=== PATIENT | female | born 1955 | race Caucasian/White ===

== ENCOUNTER → 2021-03-29 08:16 | Outpatient (CLI) | payer MEDICARE, BC, SELFPAY ==
--- NOTE | 2021-03-29 08:20 | MR_ITS ---
PROCEDURE: MR LUMBAR SPINE WO CON CLINICAL INDICATION: SPINAL STENOSIS, LUMBAR RADICULOPATHY Lt sided LBP [id number]. Lt leg pain, numbness, and tingling. Pain is constant. No injury or trauma. No prior. COMPARISON: No exams were available for comparison TECHNIQUE: Standard multiplanar multiecho sequences are performed without contrast. 3-D MIP and myelographic images are also rendered and reviewed FINDINGS: There is normal alignment. There is slight reversal of the lumbar lordosis with mild lumbar scoliosis convex right. Spinal cord ends at the L1 level. L1-L2: Degenerative disc disease with mild bulging disc and facet and ligamentum hypertrophy with mild bilateral lateral recess narrowing and foraminal narrowing left greater than right. L2-L3: Degenerative disc disease with minimal bulging disc. There is moderate left-sided facet and ligamentum hypertrophy with left lateral recess narrowing and moderate to severe left-sided foraminal narrowing. Type 2 endplate changes at this level. L3-L4: Degenerative disc disease with mild bulging disc more prominent at the foraminal and lateral foraminal regions with moderate left-sided foraminal narrowing. L4-5: Degenerative disc disease with bulging disc eccentric toward the right with endplate hypertrophic change on the right along with facet and ligamentum hypertrophy with moderate right and mild left foraminal narrowing. L5-S1: Mild degenerative disc disease. Mild facet hypertrophic change. Mild bilateral foraminal narrowing. No extruded herniated disc evident. There are degenerative changes of the SI joints On the STIR images there is increased signal intensity within the sacrum on both sides at the lateral aspect. This is nonspecific and could be related to underlying bone marrow edema from SI arthritic changes. However, on the axial T1 weighted images there is a linear area of decreased T1 signal in the left sacral wing which could be related to a nondisplaced insufficiency fracture. IMPRESSION: Multilevel lumbar spondylosis with degenerative disc disease bulging disc and facet and ligamentum hypertrophy with varying degrees of lateral recess and foraminal narrowing along with lumbar scoliosis and slight reversal of the lumbar lordosis. Please see above for detailed description at each level. No extruded herniated disc or bony canal stenosis. 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 CT of the sacrum may be of further value if clinically warranted Dictated by: Americo Sibley MD 03/30/2021 10:03 Americo Sibley MD in [place] 03/30/2021 10:03
== END ==
PROVIDERS: PCP Family Medicine; Visit Provider Family Medicine
DX: M54.16 Radiculopathy, lumbar region (principal); M47.816 Spondylosis without myelopathy or radiculopathy, lumbar region; M48.062 Spinal stenosis, lumbar region with neurogenic claudication
CPT/HCPCS: 72148; 76376

== ENCOUNTER 2022-01-27 17:11 | Emergency (ER) | payer MEDICARE, BC, SELFPAY ==
[2022-01-27 17:18] VITALS: BP 110/76; PULSE 87; RESP 16; TEMP 36.9; O2SAT 96; BMI 25.1
[2022-01-27 17:20] VITALS: BP 129/89; PULSE 84; RESP 18; TEMP 36.7; O2SAT 95; BMI 25.1
--- NOTE | 2022-01-27 17:26 | XR_ITS ---
PROCEDURE INFORMATION: Exam: XR Right Wrist Exam date and time: 01/27/22 05:27 PM Age: 66 years old Clinical indication: Injury or trauma; Fall; Blunt trauma (contusions or hematomas); Wrist; Right; Injury date: 01/27/22 TECHNIQUE: Imaging protocol: XR Right wrist. Views: 3 or more views. COMPARISON: No relevant prior studies available. FINDINGS: Bones/joints: Colles fracture distal right radial metaphysis. Comminuted fracture of the distal right ulna and styloid. Soft tissues: Normal. IMPRESSION: 1. Colles fracture distal right radial metaphysis. 2. Comminuted fracture of the distal right ulna and styloid.
--- NOTE | 2022-01-27 17:26 | XR_ITS ---
PROCEDURE INFORMATION: Exam: XR Right Hand Exam date and time: 01/27/22 05:30 PM Age: 66 years old Clinical indication: Injury or trauma; Fall; Blunt trauma (contusions or hematomas); Hand; Right; Injury date: 01/27/22 TECHNIQUE: Imaging protocol: XR Right hand. Views: 3 or more views. COMPARISON: CR XR WRIST RT MIN 3V 01/27/22 05:27 PM FINDINGS: Bones/joints: Colles fracture distal right radius. Comminuted fracture distal right ulna and ulnar styloid. Soft tissues: Normal. IMPRESSION: 1. Colles fracture distal right radius. 2. Comminuted fracture distal right ulna and ulnar styloid.
--- NOTE | 2022-01-27 17:35 | HMH.EDUTC ---
[facility] [place] Disposition Clinical Impression: Wrist fracture Qualifiers: Encounter type: initial encounter Fracture type: closed Laterality: right Qualified Code(s): S62.101A - Fracture of unspecified carpal bone, right wrist, initial encounter for closed fracture Disposition: Home, Self-Care Condition on Discharge: Good Instructions: Wrist Fracture, DI for Wrist Fracture, How To Perform RICE (Rest, Ice, Compress, Elevate), Ibuprofen Additional Instructions: *RICE, Rest the extremity, Ice 15-20 minutes 3-4 times daily, Compress- wear the shayy wrap as discussed as much as possible to help reduce swelling and pain, Elevate the extremity when at rest *Orthoglass splint is for support and help control swelling, do not take it off. Be sure that is not to tight but not to loose either *Elevate when resting Take previously prescribed pain medication as prescribed Immediately follow up with your family doctor for new or worsening of symptoms, or no noticeable improvement over the next 3-5 days Call Orthopedic office in the morning and make appointment either during the week with Dr Wright or on Thursday with Dr Dahl Return if needed Straight to ER if any life threatening symptoms Referrals: Jarocho Huynh MD [Primary Care Provider] - Jono Dahl JR, MD [Physician] - Forms: Work/School Release Time of Disposition: 18:26 Medical Decision Making - Geovani Inquiry Pt receiving controlled substance: No Geovani was queried for this patient: No Vital Signs: 01/27/22 17:18 01/27/22 17:20 Temperature 98.4 F 98.1 F Temperature Source Oral Oral Pulse Rate [Left Radial] 87 84 Respiratory Rate 16 18 Blood Pressure [Left Arm] 110/76 129/89 Blood Pressure Mean [Left Arm] 87 102 Blood Pressure Source [Left Arm] Automatic Cuff Automatic Cuff Blood Pressure Position [Left Arm] Sitting Sitting 02 Sat by Pulse Oximetry 96 95 Oxygen Delivery Method Room Air Room Air - Radiology Data #1 Image(s): Wrist Image Reviewed: Yes I have reviewed radiologist's interpretation IMPRESSION: 1. Colles fracture distal right radial metaphysis. 2. Comminuted fracture of the distal right ulna and styloid. #2 Image(s): Hand Image Reviewed: Yes I have reviewed radiologist's interpretation IMPRESSION: 1. Colles fracture distal right radius. 2. Comminuted fracture distal right ulna and ulnar styloid. - Physician Consults Physician Consulted: Dr Dahl Time: 18:21 Reason -: Orthopedic Eval/Care Comment/Response: Spoke with Dr Dahl and he advised to place in sugar tong splint and she could follow up in the office this week with Dr Wright or with him on Thursday [facility] HPI - General Stated complaint: AO 01/27@[id number] injured R hand Time Seen by Provider: 01/27/22 17:25 Mode of Arrival: Ambulatory Source of Information: Patient Limitations: No Limitations Description of Symptoms (Recalled from Triage Doc. by RN): PATIENT C/O RIGHT WRIST INJURY. SHE STATES SHE WAS WALKING THROUGH A GATE AND TRIPPED TODAY, HEAR A POP TO RIGHT WRIST HEENT Symptoms (Recalled from RN notes): No Resp Symptoms (Recalled from RN notes): No Skin Symptoms (Recalled from RN notes): No MS Symptoms (Recalled from RN notes): Yes Functional Status (Recalled from RN notes): WNL - History of Present Illness Provider Complaint: Patient states that she was walking through a gate and she bent over and picked up a stick when she tripped and fell and landed on her right wrist and she felt a pop State that ever since she has been having pain in her wrist so she came in to get checked - Worker's Comp Is this a Worker's Comp case?: No [facility] History - Hepatitis A Screen Attestation statement:: This patient has been screened for Hepatitis A risk factors. I have reviewed the patient's past medical history: Yes ROS Obtained: Yes All systems reviewed & no additional complaints, Yes Systems reviewed as appropriate & no additional complaints - P[place]io
[2022-01-27 18:35] VITALS: BP 129/89; PULSE 84; RESP 18; TEMP 36.7; O2SAT 95
== END 2022-01-27 18:41 | disposition home or self-care (01) ==
PROVIDERS: Emergency Provider Nurse Practitioner; PCP Family Medicine
DX: S52.531A Colles' fracture of right radius, initial encounter for closed fracture (principal); S52.611A Displaced fracture of right ulna styloid process, initial encounter for closed fracture; W01.0XXA Fall on same level from slipping, tripping and stumbling without subsequent striking against object, initial encounter
CPT/HCPCS: 29125; 73110; 73130; 99212; G0463

== ENCOUNTER 2022-02-07 11:43 | Outpatient (RCR) | payer MEDICARE, BC, SELFPAY | END 2022-02-07 12:45 | disposition home or self-care (01) | LOC: OT 11:43 | PROVIDERS: Visit Provider Orthopaedic Surgery | DX: S62.101D Fracture of unspecified carpal bone, right wrist, subsequent encounter for fracture with routine healing (principal) | CPT/HCPCS: 97763 ==

== ENCOUNTER → 2022-02-14 13:57 | Outpatient (CLI) | payer MEDICARE, BC, SELFPAY ==
--- NOTE | 2022-02-14 14:02 | XR_ITS ---
FINAL REPORT CLINICAL HISTORY: wrist fracture, pt states that she fractured her wrist on January 27 from a fall and took off her cast before recommended. COMPARISON: January 27, 2022 FINDINGS: RIGHT WRIST Three views demonstrate a comminuted impacted fracture of the distal radius. There is worsening impaction and dorsal displacement since the prior study. There is a distal ulnar fracture involving the ulnar styloid process, also with increased dorsal displacement. There is soft tissue swelling noted. IMPRESSION: Worsening impaction and dorsal displacement of distal radius and ulnar fractures. Reviewed, Interpreted and Dictated by Vito Gonzáles III, MD Transcribed by Dionna Moe Authenticated and [facility]
== END ==
PROVIDERS: PCP Family Medicine; Visit Provider Orthopaedic Surgery
DX: S62.101A Fracture of unspecified carpal bone, right wrist, initial encounter for closed fracture (principal)
CPT/HCPCS: 73110

== ENCOUNTER → 2022-03-21 13:20 | Outpatient (CLI) | payer MEDICARE, BC, SELFPAY ==
--- NOTE | 2022-03-21 13:23 | XR_ITS ---
FINAL REPORT CLINICAL HISTORY: wrist fracture FINDINGS: AP, oblique, and lateral views of the right wrist were obtained. Comparison is made to an exam dated February 14, 2022. There is interval healing of the distal radius and ulna fractures. The fracture fragment alignment is unchanged. There is degenerative joint disease. There is mild soft tissue edema. IMPRESSION: Healing distal radius and ulnar fractures. No change in alignment. Reviewed, Interpreted and Dictated by Yeimi Christine MD Transcribed by Dennis Soriano Authenticated and [facility]
== END ==
PROVIDERS: PCP Family Medicine; Visit Provider Orthopaedic Surgery
DX: S62.101A Fracture of unspecified carpal bone, right wrist, initial encounter for closed fracture (principal)
CPT/HCPCS: 73110

== ENCOUNTER → 2022-05-02 12:14 | Outpatient (CLI) | payer MEDICARE, BC, SELFPAY ==
--- NOTE | 2022-05-02 12:20 | XR_ITS ---
FINAL REPORT CLINICAL HISTORY: rt wrist fracture f/u COMPARISON: 03/21/2022 FINDINGS: RIGHT WRIST Three views demonstrate comminuted, impacted fractures of the distal radius and ulna. There has been interval healing and increased callus formation. Alignment is unchanged. Mild degenerative changes are noted. IMPRESSION: Interval healing and callus formation, otherwise, no significant change. Reviewed, Interpreted and Dictated by Vito Gonzáles III, MD Transcribed by Brigette Ford Authenticated and [facility]
== END ==
PROVIDERS: PCP Family Medicine; Visit Provider Orthopaedic Surgery
DX: S62.101A Fracture of unspecified carpal bone, right wrist, initial encounter for closed fracture (principal)
CPT/HCPCS: 73110

== ENCOUNTER → 2022-08-29 12:30 | Outpatient (CLI) | payer MEDICARE, BC, SELFPAY ==
--- NOTE | 2022-08-29 12:33 | XR_ITS ---
FINAL REPORT CLINICAL HISTORY: wrist fracture COMPARISON: 05/02/2022 FINDINGS: Right wrist Three views were obtained. The distal radial fracture appears radiographically healed although there is significant deformity of dorsal angulation and displacement. There is increased lucency of the distal ulnar fracture compatible with nonunion. The carpus is intact. IMPRESSION: Interval healing of a distal radial fracture with underlying deformity. Nonunion of an ulnar fracture. Reviewed, Interpreted and Dictated by Bell Smith MD Transcribed by Radha No Authenticated and . [facility]
== END ==
PROVIDERS: PCP Family Medicine; Visit Provider Orthopaedic Surgery
DX: M25.531 Pain in right wrist (principal); S62.101A Fracture of unspecified carpal bone, right wrist, initial encounter for closed fracture
CPT/HCPCS: 73110

== ENCOUNTER 2023-01-23 15:57 | Emergency (ER) | payer MEDICARE, BC, SELFPAY ==
[2023-01-23 16:10] VITALS: BP 143/98; PULSE 129; RESP 22; TEMP 36.8; O2SAT 98; BMI 23.8
[2023-01-23 16:25] LABS: Apearance,Urine Turbid (Clear); Bilirubin,Urine Negative (Negative); Blood, Urine 3+ (Negative); Color,Urine Amber (Yellow); Glucose,Urine (UA) Negative (Negative); Ketones,Urine Negative (Negative); PH,Urine 7.5 (5.0-8.5); Protein,Urine 3+ (Negative); Specific Gravity, Urine 1.025 (1.005-1.030); UTC Leukocyte Esterase,Urine 3+ (Negative); Urobilinogen,Urine 2 EU/dl (0.2)
[2023-01-23 16:26] LABS: UTC Nitrate,Urine Positive (Negative)
[2023-01-23 16:27] VITALS: BP 143/98; PULSE 129; RESP 22; TEMP 36.8; O2SAT 98
[2023-01-23 16:32] VITALS: BP 116/80
--- NOTE | 2023-01-23 16:36 | EXP.UTC ---
Discharge Plan Disposition Patient Disposition: Home, Self-Care Condition: Good Prescriptions Prescriptions: New ciprofloxacin HCl [Cipro] 500 mg tablet 500 mg PO Q12H 7 Days Qty: 14 0RF No Action diazepam 10 mg tablet 10 mg PO HS Label Comments: TAKE ONE TABLET BY MOUTH EVERY EVENING MAY CAUSE DROWSINESS oxycodone 30 mg tablet 30 mg PO TID Label Comments: TAKE ONE TABLET BY MOUTH THREE TIMES DAILY and TAKE 1/2 TABLET BY MOUTH EVERY EVENING MAY CAUSE DROWSINESS diclofenac sodium 75 mg tablet,delayed release (DR/EC) 75 mg PO BID Label Comments: TAKE ONE TABLET BY MOUTH TWICE DAILY --TAKE WITH FOOD-- Referrals Follow up/Referrals: Jarocho Huynh MD [Primary Care Provider] - See instructions Clinical Impressions Clinical Impression: Urinary tract infection Qualifiers: Urinary tract infection type: acute cystitis Hematuria presence: with hematuria Qualified Code(s): N30.01 - Acute cystitis with hematuria Instructions Patient Instructions: DI for Urinary Tract Infection (UTI) Discharge ED Provider: Justa Pratt [facility] General Stated complaint: Possible UTI Mode of Arrival: Ambulatory Source of Information: Patient Limitations: No Limitations Time Seen by Provider: 01/23/23 16:20 Description of Symptoms (Recalled from Triage Doc. by RN): PATIENT REPORTS BLADDER PRESSURE X 3-4 DAYS HEENT Symptoms (Recalled from RN notes): No Resp Symptoms (Recalled from RN notes): No Skin Symptoms (Recalled from RN notes): No MS Symptoms (Recalled from RN notes): No Functional Status (Recalled from RN notes): WNL History of Present Illness Provider Complaint: Pt reports that for the last 3 days she has had increased urinary frequency and pressure over her bladder. Pt has not taken anything for her symptoms. Related Data Home Medications Medication Instructions Recorded Confirmed diazepam 10 mg tablet 10 mg PO HS Insomnia 01/31/22 01/23/23 diclofenac sodium 75 mg 75 mg PO BID Pain 01/31/22 01/23/23 tablet,delayed release oxycodone 30 mg tablet 30 mg PO TID Pain 01/31/22 01/23/23 Previous Rx's Medication Instructions Recorded ciprofloxacin HCl 500 mg tablet 500 mg PO Q12H 7 days #14 tabs 01/23/23 (Cipro) Allergies Allergy/AdvReac Type Severity Reaction Status Date / Time naproxen [From EC-Naproxen] Allergy Verified 08/29/22 13:03 Worker's Comp Is this a Worker's Comp case?: No [facility] Disclaimer: The information contained in this section may have been updated after the patient was seen, as this information can be updated by other users. Social History Smoking Status: Current every day smoker alcohol intake: never current occupational status: employed Travel in the last 8 weeks: None ROS Obtained: Yes All systems reviewed & no additional complaints except as documented Constitutional Constitutional: Reports system reviewed and no additional complaints, except as documented Eyes Eyes: Reports system reviewed and no additional complaints, except as documented ENT Ears, Nose, Mouth, and Throat: Reports system reviewed and no additional complaints, except as documented Cardiovascular Cardiovascular: Reports system reviewed and no additional complaints, except as documented Respiratory Respiratory: Reports system reviewed and no additional complaints, except as documented Gastrointestinal Gastrointestingal: Reports system reviewed and no additional complaints, except as documented Genitourinary Female Genitourinary: Reports urinary frequency, Reports urinary hesitancy and Reports urinary urgency Comments: suprapubic pressure Musculoskeletal Musculoskeletal: Reports system reviewed and no additional complaints, except as documented Integumentary/Breasts Skin/Breast: Reports system reviewed and no additional complaints, except as documented Neurologic Neurologic: Reports system rev
== END 2023-01-23 16:47 | disposition home or self-care (01) ==
PROVIDERS: Emergency Provider Nurse Practitioner Family; PCP Family Medicine
DX: N30.01 Acute cystitis with hematuria (principal); F17.210 Nicotine dependence, cigarettes, uncomplicated
CPT/HCPCS: 81003; 99212; 99214; G0463

== ENCOUNTER 2023-03-28 14:05 | Emergency (ER) | payer MEDICARE, BC, SELFPAY ==
[2023-03-28 14:20] VITALS: BP 136/87; PULSE 68; RESP 18; TEMP 36.9; O2SAT 98; BMI 23.1
[2023-03-28 14:30] LABS: Microscopic, Urine URINE MICROSCOPIC (MICROSCOPIC)
--- NOTE | 2023-03-28 14:43 | EXP.UTC ---
Discharge Plan Disposition Patient Disposition: Home, Self-Care Condition: Good Prescriptions Prescriptions: New cephalexin [cephalexin] 500 mg tablet 500 mg PO BID 7 Days Qty: 14 0RF cephalexin [cephalexin] 500 mg tablet 500 mg PO BID 7 Days Qty: 14 0RF No Action diazepam 10 mg tablet 10 mg PO HS Patient Comments: TAKE ONE TABLET BY MOUTH EVERY EVENING MAY CAUSE DROWSINESS oxycodone 30 mg tablet 30 mg PO TID Patient Comments: TAKE ONE TABLET BY MOUTH THREE TIMES DAILY and TAKE 1/2 TABLET BY MOUTH EVERY EVENING MAY CAUSE DROWSINESS diclofenac sodium 75 mg tablet,delayed release (DR/EC) 75 mg PO BID Patient Comments: TAKE ONE TABLET BY MOUTH TWICE DAILY --TAKE WITH FOOD-- ciprofloxacin HCl [Cipro] 500 mg tablet 500 mg PO Q12H 7 Days Qty: 14 0RF Referrals Follow up/Referrals: Bell Gallego MD [Primary Care Provider] - See instructions Activity Restrictions/Add. Instructions Additional Instructions/Restrictions: Increase fluids, water and not soda or tea. Can drink cranberry juice or cranberry extract. Wipe front to back Wear cotton underwear Empty bladder after intercourse Start antibiotics immediately and make sure you take the full course although you may start to see improvement over the next 48 hours. You can eat yogurt or take probiotics to decrease diarrhea or yeast infection caused by the antibiotic Be sure to follow-up anytime for new or worsening symptoms in 48 hours for wound urine culture results be sure to let you PCP no recent urine for culture so they can request records and ensure that you have appropriate antibiotic if you are not getting better or getting worse. If symptoms worsen or do not improve return or be seen in the ER. Follow-up with primary care this week. Clinical Impressions Clinical Impression: Urinary tract infection Qualifiers: Urinary tract infection type: acute cystitis Hematuria presence: with hematuria Qualified Code(s): N30.01 - Acute cystitis with hematuria Instructions Patient Instructions: DI for Urinary Tract Infection (UTI) Discharge [facility] [place] General Stated complaint: possible uti Mode of Arrival: Ambulatory Source of Information: Patient Limitations: No Limitations Time Seen by Provider: 03/28/23 14:43 Description of Symptoms (Recalled from Triage Doc. by RN): PATIENT C/O URINARY FREQUENCY HEENT Symptoms (Recalled from RN notes): No Resp Symptoms (Recalled from RN notes): No Skin Symptoms (Recalled from RN notes): No MS Symptoms (Recalled from RN notes): No Functional Status (Recalled from RN notes): WNL History of Present Illness Provider Complaint: 67 yr old female presents for urinary freq and urgency Related Data Home Medications Medication Instructions Recorded Confirmed diazepam 10 mg tablet 10 mg PO HS Insomnia 01/31/22 01/23/23 diclofenac sodium 75 mg 75 mg PO BID Pain 01/31/22 01/23/23 tablet,delayed release oxycodone 30 mg tablet 30 mg PO TID Pain 01/31/22 01/23/23 Previous Rx's Medication Instructions Recorded ciprofloxacin HCl 500 mg tablet 500 mg PO Q12H 7 days #14 tabs 01/23/23 (Cipro) cephalexin 500 mg tablet 500 mg PO BID 7 days #14 tabs 03/28/23 cephalexin 500 mg tablet 500 mg PO BID 7 days #14 tabs 03/28/23 Allergies Allergy/AdvReac Type Severity Reaction Status Date / Time naproxen [From EC-Naproxen] Allergy Verified 08/29/22 13:03 Worker's Comp Is this a Worker's Comp case?: No [facility] Disclaimer: The information contained in this section may have been updated after the patient was seen, as this information can be updated by other users. Social History , [employer]) Smoking Status: Current every day smoker alcohol intake: never current occupational status: employed Travel in the last 8 weeks: None ROS Obtained: Yes All systems reviewed & no additional complaint
[2023-03-28 15:00] LABS: Appearance,Urine CLEAR (Clear); Bilirubin,Urine Negative (Negative); Blood, Urine 2+ (Negative); Color,Urine YELLOW (Yellow); Glucose,Urine (UA) Negative (Negative); Ketones,Urine Negative (Negative); Leukocyte Esterase,Urine 2+ (Negative); Nitrate,Urine Negative (Negative); PH,Urine 7.5 (5.0-8.5); Protein,Urine 2+ (Negative)
[2023-03-28 15:09] VITALS: BP 136/87; PULSE 68; RESP 18; TEMP 36.9; O2SAT 98
[2023-03-28 15:29] LABS: Bacteria,Urine Trace /lpf; WBC,Urine 20-50 #/hpf (0-3)
== END 2023-03-28 15:12 | disposition home or self-care (01) ==
PROVIDERS: Emergency Provider Nurse Practitioner Family; PCP Family Medicine
DX: N30.01 Acute cystitis with hematuria (principal); F17.210 Nicotine dependence, cigarettes, uncomplicated; B96.29 Other Escherichia coli [E. coli] as the cause of diseases classified elsewhere
CPT/HCPCS: 81001; 87086; 87088; 87186; 99212; 99214; G0463

== ENCOUNTER 2023-07-12 14:16 | Emergency (ER) | payer MEDICARE, BC, SELFPAY ==
[2023-07-12 14:40] VITALS: BP 148/96; PULSE 74; RESP 18; TEMP 37.1; O2SAT 96; BMI 25.0
--- NOTE | 2023-07-12 14:48 | EXP.UTC ---
Discharge Plan Disposition Patient Disposition: Home, Self-Care Condition: Good Prescriptions Prescriptions: New phenazopyridine [Pyridium] 200 mg tablet 200 mg PO Q8H 2 Days Qty: 6 0RF sulfamethoxazole-trimethoprim [Bactrim DS] 800-160 mg Tablet 1 tab PO BID Qty: 14 0RF No Action diazepam 10 mg tablet 10 mg PO HS Patient Comments: TAKE ONE TABLET BY MOUTH EVERY EVENING MAY CAUSE DROWSINESS oxycodone 30 mg tablet 30 mg PO TID Patient Comments: TAKE ONE TABLET BY MOUTH THREE TIMES DAILY and TAKE 1/2 TABLET BY MOUTH EVERY EVENING MAY CAUSE DROWSINESS diclofenac sodium 75 mg tablet,delayed release (DR/EC) 75 mg PO BID Patient Comments: TAKE ONE TABLET BY MOUTH TWICE DAILY --TAKE WITH FOOD-- Referrals Follow up/Referrals: Jarocho Huynh MD [Primary Care Provider] - See instructions Activity Restrictions/Add. Instructions Additional Instructions/Restrictions: Drink plenty of fluids. Take tylenol or ibuprofen for pain or fever. Take the medications as directed. Follow up with your regular doctor. GO TO THE ER FOR ANY WORSENING SYMPTOMS The pyridium will make your urine turn orange, this is an expected side effect. It will stain your clothes if it comes into contact with them. We will culture the urine. That will tell what bacteria is causing your infection and which antibiotics will treat it best. Sometimes the first antibiotic we prescribe turns out to not work against different bacteria. So, make sure you follow up within 3 days if you are not getting better. Clinical Impressions Clinical Impression: Urinary tract infection Instructions Patient Instructions: Urinary Tract Infection, Urine Culture, DI for Urinary Tract Infection (UTI), Phenazopyridine Discharge ED Provider: Lorenzo Thrasher [facility] General Stated complaint: POSSIBLE UTI Time Seen by Provider: 07/12/23 14:48 History of Present Illness Provider Complaint: She states that for the past 2 days she has had low back pain, dysuria and urinary frequency. Related Data Home Medications Medication Instructions Recorded Confirmed diazepam 10 mg tablet 10 mg PO HS Insomnia 01/31/22 07/12/23 diclofenac sodium 75 mg 75 mg PO BID Pain 01/31/22 07/12/23 tablet,delayed release oxycodone 30 mg tablet 30 mg PO TID Pain 01/31/22 07/12/23 Previous Rx's Medication Instructions Recorded phenazopyridine 200 mg tablet 200 mg PO Q8H 2 days #6 tabs 07/12/23 (Pyridium) sulfamethoxazole 800 1 tab PO BID #14 tabs 07/12/23 mg-trimethoprim 160 mg tablet (Bactrim DS) Allergies Allergy/AdvReac Type Severity Reaction Status Date / Time naproxen [From EC-Naproxen] Allergy Verified 07/12/23 14:54 [facility] Disclaimer: The information contained in this section may have been updated after the patient was seen, as this information can be updated by other users. Social History Smoking Status: Current every day smoker alcohol intake: never current occupational status: employed Travel in the last 8 weeks: None ROS Obtained: Yes All systems reviewed & no additional complaints except as documented Constitutional Constitutional: Reports system reviewed and no additional complaints, except as documented, Denies chills and Denies fever(s) Eyes Eyes: Denies eye discharge ENT Ears, Nose, Mouth, and Throat: Denies dysphagia, Denies sore throat and Denies throat swelling Cardiovascular Cardiovascular: Denies chest pain and Denies dyspnea Respiratory Respiratory: Denies chest congestion, Denies cough and Denies dyspnea Gastrointestinal Gastrointestingal: Denies abdominal pain, constipation, diarrhea, dysphagia, nausea or vomiting Genitourinary Female Genitourinary: Reports as per HPI, Reports dysuria, Reports sexual dysfunction, Reports urinary frequency, Denies urinary incontinence and Reports urinary hesitancy Musculoskeleta
[2023-07-12 14:53] LABS: Color,Urine Yellow (Yellow)
[2023-07-12 14:54] LABS: Apearance,Urine Cloudy (Clear); Bilirubin,Urine Negative (Negative); Blood, Urine Negative (Negative); Glucose,Urine (UA) Negative (Negative); Ketones,Urine Negative (Negative); PH,Urine 7.5 (5.0-8.5); Protein,Urine 3+ (Negative); Specific Gravity, Urine 1.015 (1.005-1.030); Urobilinogen,Urine 0.2 EU/dl (0.2)
[2023-07-12 14:55] LABS: UTC Leukocyte Esterase,Urine 3+ (Negative); UTC Nitrate,Urine Negative (Negative)
[2023-07-12 15:18] VITALS: BP 148/96; PULSE 74; RESP 18; TEMP 37.1; O2SAT 96
== END 2023-07-12 15:18 | disposition home or self-care (01) ==
PROVIDERS: Emergency Provider Nurse Practitioner Family; PCP Family Medicine
DX: N39.0 Urinary tract infection, site not specified (principal); B96.29 Other Escherichia coli [E. coli] as the cause of diseases classified elsewhere; M54.59 Other low back pain; F17.210 Nicotine dependence, cigarettes, uncomplicated
CPT/HCPCS: 81003; 87086; 87880; 99212; 99214; G0463

== ENCOUNTER 2024-09-08 15:43 | Outpatient (CLI) | payer MEDICARE, BC, SELFPAY ==
--- NOTE | 2024-09-08 15:49 | XR_ITS ---
FINAL REPORT CLINICAL HISTORY: PAIN COMPARISON: None FINDINGS: LEFT HIP: Two views of the left hip and an AP pelvis view demonstrate no acute fracture or dislocation. There are bilateral superior and inferior pubic rami fractures, which are probably chronic. The deformity is much more pronounced on the left. Generalized osteopenia is noted. The hips are intact. The visualized bony structures are well aligned. No soft tissue abnormality is seen. IMPRESSION: Chronic bilateral superior and inferior pubic rami fractures with greater deformity on the left. Reviewed, Interpreted and Dictated by Bell Smith MD Transcribed by Alda Marroquin Authenticated and [facility]
== END 2024-09-08 23:59 | disposition home or self-care (01) ==
LOC: RAD 15:44
PROVIDERS: PCP Family Medicine; Visit Provider Family Medicine
DX: M25.552 Pain in left hip (principal)
CPT/HCPCS: 73502

== ENCOUNTER 2024-09-26 07:17 | Outpatient (CLI) | payer MEDICARE, BC, SELFPAY ==
--- NOTE | 2024-09-26 07:22 | CT_ITS ---
FINAL REPORT TECHNIQUE: Axial imaging of the pelvis was obtained without contrast.This study was performed with techniques to keep radiation doses as low as reasonably achievable, (ALARA). Individualized dose reduction technique using automated exposure control or adjustment of mA and/or kV according to the patient's size were employed. CLINICAL HISTORY: ATTN TO PUBIC RAMUS/ NONDISPLACED CLSD FX OF PELVIS FINDINGS: There is a mildly displaced transverse subcapital fracture of the proximal left femur. Fracture fragments are distracted approximately 5 mm. There are deformities of the superior and inferior pubic rami bilaterally likely related to old fractures. There is no acute pubic rami fracture. Advanced changes of degenerative disc disease are seen of the lower lumbar spine. There is moderate hip joint space narrowing bilaterally. Femoral heads have a normal smooth contour. IMPRESSION: Acute, mildly displaced subcapital fracture of the left femur. Chronic fractures of the superior and inferior pubic rami. Reviewed, Interpreted and Dictated by Luigi Garcia MD Transcribed by Brigette Ford Authenticated and . [facility]
== END 2024-09-26 23:59 | disposition home or self-care (01) ==
LOC: RAD 07:19
PROVIDERS: PCP Family Medicine; Visit Provider Family Medicine
DX: R10.2 Pelvic and perineal pain (principal); S32.9XXD Fracture of unspecified parts of lumbosacral spine and pelvis, subsequent encounter for fracture with routine healing
CPT/HCPCS: 72192

== ENCOUNTER 2024-11-08 12:56 | Outpatient (CLI) | payer MEDICARE, BC, SELFPAY ==
--- NOTE | 2024-11-08 | CA_ITS ---
APPROVED REPORT Exam: Pharmacologic Technologist: Gabriela Isidro Ht: 5 ft 5 in Stress Test Details Test: Lexiscan Reason for pharmacologic stress test: physical limitation. HR Resting HR: 86 bpm Max Heart Rate (APMHR): 151.728022 bpm Max HR Achieved: 94 bpm Target HR (85% APMHR): 128.851924 bpm % of APMHR: 62.25 Recovery HR: 90 bpm BP Resting BP: 103.0/63.0 mmHg Max BP: 114.0/72.0 mmHg Recovery BP: 114.0/72.0 mmHg ECG Resting ECG: SR Stress ECG Conclusion Symptoms: --- Arrhythmias/Ectopy: --- ST-T Changes: Less than 1mm ST depression. Conclusion: EKG portion unremarkable due to Lexiscan infusion. Electronically signed by : Jennifer Parra MD 11/10/2024 12:27:20
--- NOTE | 2024-11-08 13:00 | NM_ITS ---
APPROVED REPORT Exam: Nuclear Stress Test Indication: tob use, sob, pre-op Patient Location: Outpatient Stress Tech: Gabriela Infante NM Tech:Laura Batres, ARRT, RT (R)(N) Ht: 5 ft 6 in Wt: 174 lbs Bra Size: dd HR: 86 bpm BP: 103/63 mmHg BSA: 1.88 m2 TID: 1.88 BMI: 28.0 History: tob use, sob, pre-op patient could not lie on stomach for prone images Procedure: Patient received 0.4 mg of intravenous Lexiscan, resting heart rate 86 bpm, resting blood pressure 103/63 mmHg, with Lexiscan maximum heart rate achieved was 92 bpm which is % of the maximum predicted heart rate and blood pressure was 113/66 mmHg. With Lexiscan, patient denied any complaint of chest pain. Cardiac Stress and Resting SPECT Images: Cardiac Stress and Resting SPECT images were obtained using technetium 99m Myoview 32.2 mCi stress and 10.38 mCi at rest. Technically difficult study due to significant radiotracer uptake in the GI tract in proximity to the myocardial borders. The patient also could not lie on her abdomen. Therefore, prone stress imaging could not be performed. This may affect the diagnostic interpretation of the study findings. Resting and stress imaging in supine positions demonstrate no clear evidence of fixed or reversible perfusion defects. Analysis for transient ischemic dilatation and gated regional wall motion and LVEF assessment cannot be performed in this study due to technically difficult imaging. Conclusion: Technically difficult study. No clear evidence of fixed or reversible perfusion defects. Analysis for transient ischemic dilatation and gated regional wall motion and LVEF assessment cannot be performed in this study due to technically difficult imaging. Electronically signed by : Jennifer Parra MD 11/09/2024 12:07:28
[2024-11-08] MEDS: SODIUM CHLORIDE 0.9% 10ML SYR (RAD ONLY) 10 ML IV ×2 (13:20→14:25)
[2024-11-08] MEDS: REGADENOSON 0.4MG/5ML SYRINGE 0.4 MG IV (14:25)
--- NOTE | 2024-11-08 15:15 | CA_ITS ---
APPROVED REPORT EXAM: Comprehensive 2D, Doppler, and color-flow Echocardiogram Tube Dispatcher: Lauren Templeton RDCS Ht: 5 ft 5 in Wt: 174lbs BSA: 1.86 BP: 136/84 mmHg Indications: SOA,FX HIP PRE-OP,SMOKER 2D Dimensions LA Volume 84.50 mL LA Volume Index 45.19 mL/m2 (M/F) 16-34 M-Mode Dimensions RVDd 2.04 cm (0.9-2.6) LA Diam 2.98 cm (1.9-4.0) LVDd 5.56 cm (3.5-5.7) LVDs 4.16 cm (3.5-5.7) IVSd 0.72 cm (0.6-1.1) PWd 0.76 cm (0.6-1.1) EF (Teich) 49.20% FS 25.20% EDV (Teich) 151.20 mL TAPSE 2.90 (<1.7) ESV (Teich) 76.80 mL LV Diastology E Decel Time 177 (160-240 msec) E/A Ratio 1.0 Aortic Valve AI PHT 436.00 ms Mitral Valve MV E Max Candelario. 69.0 (40-130 cm/s) MV A Velocity 69.0 (40-130 cm/s) E/A Ratio 1.00 MV PHT 52.0 ms Tricuspid Valve TR P. Velocity 305.00 cm/s RAP Estimate 10.00 mmHg RVSP 47.30 mmHg Left Ventricle The left ventricle is normal size. The left ventricular systolic function is normal. The left ventricular ejection fraction is within the normal range. There is increased LV wall thickness. There is normal LV segmental wall motion. The left ventricular diastolic function is normal. LVEF is 55%. Right Ventricle Right ventricle is mildly dilated. The right ventricular systolic function is normal. Atria Left atrium is mildly dilated. Right atrium is mildly dilated. There is no Doppler evidence of interatrial shunt. Aortic Valve The aortic valve is mildly thickened. There is no aortic valvular stenosis. Mild aortic regurgitation. Mitral Valve The mitral valve is normal in structure. No evidence of mitral valve stenosis. Mild mitral regurgitation. Tricuspid Valve Tricuspid valve is grossly normal in structure and function. Mild tricuspid regurgitation. RVSP is 35-40 mmHg. Pulmonic Valve The pulmonary valve is normal in structure. Trace pulmonic regurgitation. Great Vessels The aortic root is normal in size. IVC is normal in size and collapses >50% with inspiration. Pericardium There is no pericardial effusion. Other Information Study Quality: Fair Conclusion Normal LV systolic function. Mild RV dilation with normal RV function. Mild biatrial dilation. Mild AI, mild TR, mild MR. RVSP 35-40 mmHg. Electronically signed by : Jennifer Parra MD 11/09/2024 12:02:21
[2024-11-08] MEDS: ISOTOPE MYOVIEW (PER STUDY) 1 DOSE IV (15:34)
== END 2024-11-08 23:59 | disposition home or self-care (01) ==
LOC: RAD 12:57
PROVIDERS: PCP Family Medicine; Visit Provider Nurse Practitioner Family
DX: R06.00 Dyspnea, unspecified (principal); Z01.818 Encounter for other preprocedural examination; Z87.891 Personal history of nicotine dependence
CPT/HCPCS: 78452; 93017; 93018; 93306; A9502; J2785

== ENCOUNTER 2024-11-27 22:42 | Emergency (ER) | payer MEDICARE, BC, SELFPAY ==
[2024-11-27 22:42] VITALS: BP 140/92; PULSE 88; RESP 20; TEMP 36.8; O2SAT 95; BMI 27.4
--- NOTE | 2024-11-27 22:56 | XR_ITS ---
PROCEDURE INFORMATION: Exam: XR Left Forearm Exam date and time: 11/27/2024 11:12 PM Age: 69 years old Clinical indication: Injury or trauma; Fall; Blunt trauma (contusions or hematomas); Wrist; Left; Additional info: Fall, distal radius pain and deformity TECHNIQUE: Imaging protocol: Radiologic exam of the left forearm. Views: 2 views. COMPARISON: CR XR FOREARM LT 2V 11/27/2024 11:12 PM FINDINGS: Bones/joints: Transverse fracture of the distal radius with posterior displacement of the distal fragment. Soft tissues: Moderate edema in the distal soft tissues. IMPRESSION: Transverse fracture of the distal radius with posterior displacement of the distal fragment.
--- NOTE | 2024-11-27 22:56 | XR_ITS ---
PROCEDURE INFORMATION: Exam: XR Left Wrist Exam date and time: 11/27/2024 11:12 PM Age: 69 years old Clinical indication: Injury or trauma; Fall; Blunt trauma (contusions or hematomas); Wrist; Left; Additional info: Fall, distal radius pain and deformity TECHNIQUE: Imaging protocol: Radiologic exam of the left wrist. Views: 3 or more views. COMPARISON: CR XR FOREARM LT 2V 11/27/2024 11:12 PM FINDINGS: Bones/joints: Transverse mildly comminuted fracture of the distal radius with posterior displacement of the distal fragment. Fracture through the base of the ulnar styloid with mild lateral displacement. Soft tissues: Moderate soft tissue edema. IMPRESSION: 1. Transverse mildly comminuted fracture of the distal radius with posterior displacement of the distal fragment. 2. Fracture through the base of the ulnar styloid with mild lateral displacement.
--- NOTE | 2024-11-27 22:56 | XR_ITS ---
PROCEDURE INFORMATION: Exam: XR Left Hand Exam date and time: 11/27/2024 11:12 PM Age: 69 years old Clinical indication: Injury or trauma; Fall; Blunt trauma (contusions or hematomas); Wrist; Left; Additional info: Fall, distal radius pain and deformity TECHNIQUE: Imaging protocol: Radiologic exam of the left hand. Views: 3 or more views. COMPARISON: CR XR HAND LT MIN 3V 11/27/2024 11:12 PM FINDINGS: Bones/joints: Please refer to the wrist x-ray report for description of the distal radius and ulna fractures. there is no acute fracture or dislocation. There is mild narrowing of the interphalangeal joints. Soft tissues: Normal. IMPRESSION: No acute fracture or dislocation. Mild arthritis of the interphalangeal joints.
--- NOTE | 2024-11-27 22:58 | HMH.EDGENADL ---
Discharge Plan Disposition Patient Disposition: Home, Self-Care Condition: Good Prescriptions Prescriptions: No Action diazepam 10 mg tablet 10 mg PO HS Patient Comments: TAKE ONE TABLET BY MOUTH EVERY EVENING MAY CAUSE DROWSINESS oxycodone 30 mg tablet 30 mg PO TID Patient Comments: TAKE ONE TABLET BY MOUTH THREE TIMES DAILY and TAKE 1/2 TABLET BY MOUTH EVERY EVENING MAY CAUSE DROWSINESS diclofenac sodium 75 mg tablet,delayed release (DR/EC) 75 mg PO BID Patient Comments: TAKE ONE TABLET BY MOUTH TWICE DAILY --TAKE WITH FOOD-- Referrals Follow up/Referrals: Mark Alberto DO [Staff Physician] - See instructions (distal radius/ulna fx Left side from fall. Splinted in ER) Jarocho Huynh MD [Primary Care Provider] - See instructions Activity Restrictions/Add. Instructions Additional Instructions/Restrictions: You were evaluated in the ER and are appropriate for discharge at this time. Keep the splint clean and dry as discussed. Wear the sling as directed. Be sure to move your shoulder a few times a day to avoid frozen shoulder. Take your home pain medications as previously prescribed, but also take Tylenol and ibuprofen. Follow-up with Dr. Alberto. Call his office for an appointment. Return to the ER with any new, worsening, or otherwise concerning symptoms. Clinical Impressions Clinical Impression: Forearm fractures, both bones, closed, Distal radial fracture, Fall, Fracture of ulnar styloid Print Language Print Language: Luxembourgish Discharge ED Provider: Forrest Jang General Adult HPI <Forrest Jang MD - Last Filed: 11/27/24 23:01> General Chief complaint: Fall Stated complaint: Fall Time Seen by Provider: 11/27/24 22:45 Mode of Arrival: EMS Source of Information: Patient and Spouse Description of Symptoms (Recalled from ER Triage Doc. by RN): pt states she was coming out of the bathroom when she lost her balance and fell, pt denies hitting her head or any LOC. pt only reports left wrist pain and chronic pain into the left hip which she states was previously broken in august and is awaiting surgery onDecember 11. pt denies any use of blood thinners History of Present Illness HPI narrative: Please note that above description of symptoms, in this electronic medical record under categorization of recalled from ER triage doctor by RN are reflective of an initial nursing assessment, however, is not reflective of my full history and physical exam that was personally taken and clarified. Consequentially, this preceding description of symptoms, which may include the patient's categorized chief complaint in the EMR, do not reflect my personal clinical impression, and the ultimate description of history of present illness and patient stated complaints should be deferred to this section of the note. Unless stated otherwise or congruent with this section of the note, additional signs, symptoms, or incongruence should be interpreted as inaccurate with my clinical impression. Related Data Home Medications ?Medication ?Instructions ?Recorded ?Confirmed diazepam 10 mg tablet 10 mg PO HS Insomnia 01/31/22 11/02/24 diclofenac sodium 75 mg 75 mg PO BID Pain 01/31/22 11/02/24 tablet,delayed release oxycodone 30 mg tablet 30 mg PO TID Pain 01/31/22 11/02/24 Allergies Allergy/AdvReac Type Severity Reaction Status Date / Time morphine Allergy Unknown Verified 11/27/24 22:50 allergy reaction naproxen (From EC-Naproxen) Allergy Unknown Verified 11/27/24 22:50 allergy reaction PFS <Forrest Jang MD - Last Filed: 11/27/24 23:01> [facility] Disclaimer: The information contained in this section may have been updated after the patient was seen, as this information can be updated by other users. Medical History (Updated 11/28/24 @ 00:54 by Tiffany Gutierrez MD) Pre-op evaluation Former smoker Dyspnea Social History Smoking Status: Former smoker alcohol intake: never current occupational status: employed Travel in the last 8 weeks: None Have you lived/traveled outside [place] in past 30 days?: No Contact w/someone who lives/traveled outside US past 30 days?: No Exposure to someone with infectious disease in past 14 days?: No Do you have a fever (greater than 100.4 F or 38 C)?: No Have you tested positive for COVID-19: No Exposed to someone with COVID-19 in past 14 days?: No Do you have a sore throat?: No Do you have a cough?: No Do you have any weakness?: No Do you have any diarrhea?: No Are you experiencing any unusual bleeding?: No Do you have any muscle aches/pain?: No Do you have any abdominal pain?: No Are you experiencing loss of taste or smell?: No Other Medical History Have you received the Pneumonia Vaccine: No <Forrest Jang MD - Last Filed: 11/27/24 23:01> ROS Obtained: Yes All systems reviewed & no additional complaints except as documented Physical Exam <Forrest Jang MD - Last Filed: 11/27/24 23:01> General General appearance: alert Head Head exam: atraumatic and normocephalic Eye Eye exam: Present normal appearance, PERRL and EOMI Neck Neck exam: Present normal inspection, full ROM and trachea midline Respiratory Respiratory exam: Absent respiratory distress, wheezes, stridor, accessory muscle use or prolonged expiratory phase Cardiovascular Cardiovascular exam: Present other (Pulses equal symmetric in upper and lower extremities) Abdominal Exam Abdominal exam: Present soft; Absent distention, tenderness or pulsatile mass Extremities Exam Extremities exam: Present edema and other (Tenderness, swelling, deformity distal radius) Neurological Exam Neurological exam: Present alert, oriented X3 and CN II-XII intact; Absent motor sensory deficit Skin Skin exam: Present warm and dry; Absent diaphoresis or erythema Medical Decision Making <Forrest Jang MD - Last Filed: 11/27/24 23:01> Medical Records Medical records reviewed: Yes I reviewed the patient's medical records. Screening: Per USPSTF and CDC recommendations, given the prevalence of disease in our region, it is our hospital?s policy to screen for HIV and viral Hepatitis for all patients aged 18 and over and those with ongoing risk factors. Geovani Inquiry Pt receiving controlled substance: No Geovani was queried for this patient: No Vital Signs: 11/27/24 22:42 11/27/24 23:00 11/28/24 01:41 Temperature 98.2 F 98.1 F Temperature Source Oral Pulse Rate 86 83 Pulse Rate [Right] 88 Respiratory Rate 20 20 Blood Pressure 136/92 H 130/86 Blood Pressure [Right Arm] 140/92 H Blood Pressure Mean [Right Arm] 108 02 Sat by Pulse Oximetry 95 96 Oxygen Delivery Method Room Air Room Air Orders (Tests/Meds): ED MEDICATIONS Discontinued Medications Generic Name Dose Route Start Last Admin Trade Name Freq PRN Reason Stop Dose Admin Acetaminophen 1,000 mg 11/27/24 22:56 11/27/24 23:05 Acetaminophen 500mg Tab PO 11/27/24 22:57 1,000 mg ONCE ONE Administration Lidocaine HCl 20 ml 11/27/24 23:42 11/28/24 01:43 Lidocaine 1% 20ml Mdv IJ 11/27/24 23:43 15 ml ONCE ONE Administration Ondansetron HCl 4 mg 11/27/24 22:56 11/27/24 23:05 Ondansetron 4mg Odt SL 11/27/24 22:57 4 mg ONCE ONE Administration Oxycodone HCl 5 mg 11/27/24 22:56 11/27/24 23:05 Oxycodone 5mg Immediate Release Tablet PO 11/27/24 22:57 5 mg ONCE ONE Administration ORDERS Category Date Time Status Forearm XR left 2 views [XR forearm LT 2V] Stat Exams 11/27/24 22:56 Completed Hand XR left minimum 3 views [XR hand LT min 3V] Stat Exams 11/27/24 22:56 Completed Wrist XR left 2 views [XR wrist LT 2V] Stat Exams 11/28/24 00:51 Completed Wrist XR left minimum 3 views [XR wrist LT min 3V] Stat Exams 11/27/24 22:56 Completed HIV Combo Stat Lab 11/27/24 22:48 Ordered Hepatitis C Ab Qual. W/ RFX Stat Lab 11/27/24 22:48 Ordered Medical Decision Narrative: This is a 69-year-old female presenting with left upper extremity injury. She states she was getting up from going to the bathroom, lost her footing, fell backward and caught her self with her left upper extremity. Having pain and deformity in the upper extremity. Came in for further evaluation. Has not taken anything for the pain. History obtained with patient and daughter. On arrival, very clinically well, she does have obvious deformity and bruising about the left distal forearm. Pulses intact, neurovascularly intact. Differential includes fracture, sprain, strain, dislocation, among others. Patient was given Zofran, oxycodone, Tylenol. X-rays were ordered. 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 Electronic humanities and languages professor of the spoken language may permit errors. Although I have reviewed the note, some errors may still exist. <Tiffany Gutierrez MD - Last Filed: 11/28/24 01:50> Vital Signs: 11/27/24 22:42 11/27/24 23:00 11/28/24 01:41 Temperature 98.2 F 98.1 F Temperature Source Oral Pulse Rate 86 83 Pulse Rate [Right] 88 Respiratory Rate 20 20 Blood Pressure 136/92 H 130/86 Blood Pressure [Right Arm] 140/92 H Blood Pressure Mean [Right Arm] 108 02 Sat by Pulse Oximetry 95 96 Oxygen Delivery Method Room Air Room Air Orders (Tests/Meds): ED MEDICATIONS Discontinued Medications Generic Name Dose Route Start Last Admin Trade Name Christelle PRN Reason Stop Dose Admin Acetaminophen 1,000 mg 11/27/24 22:56 11/27/24 23:05 Acetaminophen 500mg Tab PO 11/27/24 22:57 1,000 mg ONCE ONE Administration Lidocaine HCl 20 ml 11/27/24 23:42 11/28/24 01:43 Lidocaine 1% 20ml Mdv IJ 11/27/24 23:43 15 ml ONCE ONE Administration Ondansetron HCl 4 mg 11/27/24 22:56 11/27/24 23:05 Ondansetron 4mg Odt SL 11/27/24 22:57 4 mg ONCE ONE Administration Oxycodone HCl 5 mg 11/27/24 22:56 11/27/24 23:05 Oxycodone 5mg Immediate Release Tablet PO 11/27/24 22:57 5 mg ONCE ONE Administration ORDERS Category Date Time Status Forearm XR left 2 views [XR forearm LT 2V] Stat Exams 11/27/24 22:56 Completed Hand XR left minimum 3 views [XR hand LT min 3V] Stat Exams 11/27/24 22:56 Completed Wrist XR left 2 views [XR wrist LT 2V] Stat Exams 11/28/24 00:51 Completed Wrist XR left minimum 3 views [XR wrist LT min 3V] Stat Exams 11/27/24 22:56 Completed HIV Combo Stat Lab 11/27/24 22:48 Ordered Hepatitis C Ab Qual. W/ RFX Stat Lab 11/27/24 22:48 Ordered Medical Decision Narrative: This is a 69-year-old female presenting with left upper extremity injury. She states she was getting up from going to the bathroom, lost her footing, fell backward and caught her self with her left upper extremity. Having pain and deformity in the upper extremity. Came in for further evaluation. Has not taken anything for the pain. History obtained with patient and daughter. On arrival, very clinically well, she does have obvious deformity and bruising about the left distal forearm. Pulses intact, neurovascularly intact. Differential includes fracture, sprain, strain, dislocation, among others. Patient was given Zofran, oxycodone, Tylenol. X-rays were ordered. Prior to x-rays, care handed off to oncoming physician Gutierrez: Upon my assumption of care patient is stable and resting comfortably. I agree with the assessment and plan from Dr. Jang. I personally interpreted x-rays which demonstrate both bone distal forearm fracture. There is mild displacement of both the distal radius and the ulnar styloid. See radiology read for full interpretations. Patient is neurovascularly intact. I discussed the plan with patient and her daughter at bedside of hematoma block, some manipulation, splinting, and outpatient follow-up. They are comfortable with this plan. 1% lidocaine was used for hematoma block. I reduced and splinted the arm. Sling was provided to the patient. Post splint x-ray was performed demonstrating slight improvement in alignment though there is still persistent displacement. Radiology read pending. Patient remains neurovascularly intact. She is appropriate for discharge at this time. She already has oxycodone at home. I instructed her to take Tylenol and ibuprofen if needed. I also gave them instructions on splint care, moving the shoulder to prevent frozen shoulder, follow-up instructions including referral to Dr. Alberto, and strict return precautions for the ER. They indicated understanding and the patient was discharged in stable condition. 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 Electronic humanities and languages professor of the spoken language may permit errors. Although I have reviewed the note, some errors may still exist. Procedures <Tiffany Gutierrez MD - Last Filed: 11/28/24 01:50> Orthopedic Fracture Reduction Fracture #1: Time Out Performed: Yes Side: left Fracture Reduction Location: radius and ulna Analgesia: hematoma block (1% lidocaine 15 mL) Technique: direct manipulation, traction/counter-traction and finger traps Post Reduction X-rays Demonstrate: acceptable reduction (Slightly improved but persistent displacement of the radius fracture fragment) Post-reduction neuro exam: intact and no change Post-reduction vascular exam: intact and no change Splint Applied: Yes Patient Tolerated Procedure: well and no complications Orthopedic Splinting/Casting Injury #1: Side: left Upper Extremity Injury Location: forearm Upper Extremity Immobilizer: sugar tong splint (Soft roll, Ortho-Glass, Arias wrap. Splint personally applied and adjusted by me) Post Cast/Splinting Neuro Status: intact and no change Post Cast/Splinting Vasc Status: intact and no change Critical Care <Forrest Jang MD - Last Filed: 11/27/24 23:01> Critical Care Time Critical Care Time: No
[2024-11-27 23:00] VITALS: BP 136/92; PULSE 86; O2SAT 96
[2024-11-27] MEDS: ONDANSETRON 4MG ODT 4 MG SL (23:05)
[2024-11-27] MEDS: ACETAMINOPHEN 500MG TAB 1000 MG PO (23:05)
[2024-11-27] MEDS: OXYCODONE 5MG IMMEDIATE RELEASE TABLET 5 MG PO (23:05)
--- NOTE | 2024-11-28 00:51 | XR_ITS ---
PROCEDURE INFORMATION: Exam: XR Left Wrist Exam date and time: 11/28/2024 1:13 AM Age: 69 years old Clinical indication: Injury or trauma; Fall; Blunt trauma (contusions or hematomas); Wrist; Left; Additional info: Splinting TECHNIQUE: Imaging protocol: Radiologic exam of the left wrist. Views: 1 or 2 views. COMPARISON: CR XR WRIST LT MIN 3V 11/27/2024 11:12 PM FINDINGS: Bones/joints: Overlying cast material obscures fine osseous detail. There is persistent posterior displacement of the dominant distal radius fracture fragment. Soft tissues: Normal. IMPRESSION: There is persistent posterior displacement of the dominant distal radius fracture fragment.
[2024-11-28 01:41] VITALS: BP 130/86; PULSE 83; RESP 20; TEMP 36.7; O2SAT 95
[2024-11-28] MEDS: LIDOCAINE 1% 20ML MDV 20 ML IJ (01:43)
== END 2024-11-28 01:48 | disposition home or self-care (01) ==
PROVIDERS: Emergency Provider Emergency Medicine; PCP Family Medicine
DX: S52.612A Displaced fracture of left ulna styloid process, initial encounter for closed fracture (principal); S52.501A Unspecified fracture of the lower end of right radius, initial encounter for closed fracture; S52.92XA Unspecified fracture of left forearm, initial encounter for closed fracture; M25.532 Pain in left wrist; M25.552 Pain in left hip; W01.0XXA Fall on same level from slipping, tripping and stumbling without subsequent striking against object, initial encounter; Y93.89 Activity, other specified; Y92.002 Bathroom of unspecified non-institutional (private) residence as the place of occurrence of the external cause
CPT/HCPCS: 24620; 73090; 73100; 73110; 73130; 99284; Q0162

== ENCOUNTER 2024-12-08 13:35 | Outpatient (CLI) | payer MEDICARE, BC, SELFPAY ==
--- NOTE | 2024-12-08 13:38 | XR_ITS ---
FINAL REPORT CLINICAL HISTORY: states fractured wrist 11 days ago COMPARISON: 11/28/2024 FINDINGS: LEFT WRIST Three views were obtained. Overlying cast has been removed. There is a mildly impacted comminuted intra-articular fracture of the distal radial metaphysis with mild dorsal displacement of the distal fracture fragments. There is overlying soft tissue edema. IMPRESSION: Interval removal of overlying cast. Fragments are unchanged in position. Reviewed, Interpreted and Dictated by Luigi Garcia MD Transcribed by Radha No Authenticated and . [facility]
== END 2024-12-08 23:59 | disposition home or self-care (01) ==
LOC: RAD 13:36
PROVIDERS: PCP Family Medicine; Visit Provider Orthopaedic Surgery
DX: S52.612A Displaced fracture of left ulna styloid process, initial encounter for closed fracture (principal); S52.502A Unspecified fracture of the lower end of left radius, initial encounter for closed fracture
CPT/HCPCS: 73110

== ENCOUNTER 2025-06-06 15:50 | Outpatient (CLI) | payer MEDICARE, BC, SELFPAY ==
--- OUTSIDE RECORDS SUMMARY | 2024-12-27 12:00 | XMS_ITS ---
Author Organization [facility] Address [address] [place] [id number] Care Team Providers Care Packer Fuser Name Role Phone Bar Huynh Primary Care Provider [phone] Alejandra Farrell [phone] Allergies Allergen (clinical drug ingredient) Drug/Non Drug Allergy documented on EMR Reaction Allergy Type Onset Date Status morphine MS Contin edema Drug Allergy Active naproxen Naproxen photosensitive dermatitis Drug Allergy Active methadone Methadone urinary retention Drug Allergy Active REASON FOR VISIT [facility] [place] VISIT Medications Medication SIG (Take, Route, Frequency, Duration) Notes Start Date End Date Status Commode Bedside - as directed diagnosis code : S72.002A 10/07/2024 Not-Taking Rollator Walker - 1 as directed as directed diagnosis code: S72.002A 10/07/2024 Not-Taking Furosemide 20 MG 1 tablet Orally Once a day; Duration: 30 day(s) 09/08/2024 Not-Taking Diclofenac Sodium 75 MG Take 1 tablet by mouth twice daily.; Duration: 30 Not-Taking Albuterol Sulfate HFA 108 (90 Base) MCG/ACT 2 puff(s) inhaled every 6 hours prn Not-Taking buPROPion HCl ER (SR) 150 MG 1 tab(s) orally 2 times a day; Duration: 90 days Not-Taking Iron (Ferrous Sulfate) 325 (65 Fe) MG 1 tablet Orally Three times a Week 12/30/2024 Active Folic Acid 1 MG 1 tablet Orally Once a day 12/30/2024 Active Albuterol Sulfate HFA 108 (90 Base) MCG/ACT inhale 2 puffs by mouth every 6 hours as needed. Not-Taking Multivitamin 1 TAB ONCE A DAY Not-Taking Cyanocobalamin 1000 MCG 1 tablet Orally Once a day 12/30/2024 Active oxyCODONE HCl 30 MG 1 tab(s) 3 times a day and 1/2 tab qpm orally Active Valium 10 MG 1 tab(s) orally At Bed Time Active Acetaminophen 500 MG 2 capsule as needed Orally every 6 hrs prn Active Cefadroxil 500 MG 1 capsule Orally every 12 hrs Active Aspirin 81 81 MG 1 tablet Orally Once a day Active PriLOSEC OTC 20 MG 2 tablet 1/2 to 1 hour before morning meal Orally Once a day Active MiraLax 17 GM/SCOOP 1 scoop mixed with 8 ounces of fluid Orally Once a day Active Magnesium Oxide 400 MG 1 tablet with food Orally Once a day Active Regular Diet - as directed Act karsten traMADol HCl 50 MG 1 tablet as needed Orally every 8 hrs prn Active Senokot 8.6 MG 1 tab Orally Once a day Active Social History Tobacco Use: Social History Observation Description Date Details (start date - stop date) Former Smoker NA - NA CURRENT TOBACCO USE: Question Answer Notes Are you a: former smoker Quit 10/2023 Vital Signs Blood pressure systolic 103 mm Hg 12/28/19 25 Blood pressure diastolic 61 mm Hg 025 Heart Rate 84 /min 12/27/2024 Respiratory Rate 16 /min 12/27/2024 Weight 172 lbs 12/27/2024 Encounters Encounter Location Date Provider Diagnosis [address] [place] [id number] 12/27/2024 Alejandra Farrell Degenerative joint disease (DJD) of lumbar spine M47.816 ; Insomnia G47.00 ; Chronic pain syndrome G89.4 ; Spinal stenosis of lumbar region with neurogenic claudication M48.062 ; Former smoker Z87.891 ; GERD (gastroesophageal reflux disease) K21.9 ; Aftercare following explantation of hip joint prosthesis Z47.32 ; Closed fracture of left wrist with routine healing, subsequent encounter S62.102D and Chronic anemia D64.9 Assessments Encounter Date Diagnosis (ICD Code) Assessment Notes Treatment Notes Treatment Clinical Notes Section Notes 12/27/2024 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) 12/27/2024 Insomnia (ICD-10 - G47.00) 12/27/2024 Chronic pain syndrome (ICD-10 - G89.4) 12/27/2024 Spinal stenosis of lumbar region with neurogenic claudication (ICD-10 - M48.062) 12/27/2024 Former smoker (ICD-10 - Z87.891) 12/27/2024 GERD (gastroesophageal reflux disease) (ICD-10 - K21.9) 12/27/2024 Aftercare following explantation of hip joint prosthesis (ICD-10 - Z47.32) continue with PT with plans to go home 12/27/2024 Closed fracture of left wrist with routine healing, subsequent encounter (ICD-10 - S62.102D) 12/27/2024 Chronic anemia (ICD-10 - D64.9) Pt states she received 4 U PRBC while at [facility]; she states she had multiple blood tests while there as well; blood tests not readily available and not in DC summary; will access results from ; pt is a very hard stick and nursing had to stick her several times which was very traumatic to the pt; so will not redraw for CBC ; will try for finger stick for repeat CBC when possible; will start Iron, B12, and FA; still need stool for OB Plan Of Treatment Medication Medication Name Sig Start Date Stop Date Notes Iron (Ferrous Sulfate) 325 ( 65 Fe) MG 1 tablet Orally Three times a Week 12/30/2024 Folic Acid 1 MG 1 tablet Orally Once a day 12/30/2024 Cyanocobalamin 1000 MCG 1 tablet Orally Once a day 12/30/2024 oxyCODONE HCl 30 MG 1 tab(s) 3 times a d ay and 1/2 tab qpm orally Valium 10 MG 1 tab(s) orally At B ed Time Acetaminophen 500 MG 2 capsule as needed Orally every 6 hrs prn Cefadroxil 500 MG 1 capsule Orally lulu ry 12 hrs Aspirin 81 81 MG 1 tablet Orally Once a day PriLOSEC OTC 20 MG 2 tablet 1/2 to 1 ho ur before morning meal Orally Once a day MiraLax 17 GM/SCOOP 1 scoop mixed with 8 ounces of fluid Orally Once a day traMADol HCl 50 MG 1 tablet as needed O rally every 8 hrs prn Senokot 8.6 MG 1 tab Orally Once a day Treatment Notes Assessment Notes Aftercare following explanta tion of hip joint prosthesis continue with PT with plans to go home Chronic anemia Pt states she receiv ed 4 U PRBC while at [facility]; she states she had multiple blood tests while there as well; blood tests not readily available and not in DC summary; will access results from ; pt is a very hard stick and nursing had to stick her several times which was very traumatic to the pt; so will not redraw for CBC ; will try for finger stick for repeat CBC when possible; will start Iron, B12, and FA; still need stool for OB Next Appt Details Follow Up: 2 Weeks, Reason: Provider Name:Bar Castro, 07/25/2025 01:30:00 PM, [address], [address], [place], [place], [id number], Progress Notes * DYLAN MARTINOB:1955 (69 yo F)Acc No.[id number]:12/27/2024 Progress Notes Patient: Darby TESFAYEALONDRACLIVE Provider: HERLINDA Mitchell :1955 A ge:69 Y S ex:Female Date:12/27/2024 [address], [place], [id number] Pcp:Bar Huynh Subjective: * Chief Complaints: * 1 . [facility] HOME VISIT. * HPI: H PI: For routine Long-Term visit; chart reviewed and patient examined; see ROS. * ROS: G ASTROENTEROLOGY: Positive for f ood does not interest her. n o V omiting. n o D iarrhea. C onstipation y es, o n meds. M USCULOSKELETAL: Positive for h ad orthopedic appt for FU on her hip; she states visit went well; visit note state to continue PWB LLE to 20# and OK to shower. J oint pain?yes. 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 ? * Medical History: D DD L-spine - MRI 05/2002, Thoracic kyphosis, Tobacco addiction-quit smoking 2023, Declines health screenings - 08/2021; 08/2022; 12/2023, Right wrist fx - 01/2022, Anemia, Lumbar stenosis, GERD, Anxiety, Insomnia, COPD, Falss resulting in fractures, Severe osteoporosis. * Surgical History: T eeth removed 09/2018, ORIF LEFT RADIUS; LEFT TOTAL HIP ARTHROPLASTY 12/12/2024. * Hospitalization/Major Diagno stic Procedure: U K for scheduled ORIF OF LEFT WRIST AND TOTAL LEFT THR; anemia; COPD; severe osteoporosis 12/12-12/18/2024. * Family History: F ather: . M other: , Hypertension, osteoarthritis. 1 sister(s) . 1 daughter(s) . . * Social History: C URRENT TOBACCO USE: No A re you a: f ormer smoker Quit 10/2023. C affeine: yes, frequency:. Marital Status: Single. Alcohol: socially, Type: , Frequency: ,Years: , Determination:. * Medications: T aking Regular Diet - - as directed , Taking traMADol HCl 50 MG Tablet 1 tablet as needed Orally every 8 hrs prn , Taking Senokot 8.6 MG Tablet 1 tab Orally Once a day , Taking PriLOSEC OTC 20 MG Tablet Delayed Release 2 tablet 1/2 to 1 hour before morning meal Orally Once a day , Taking MiraLax 17 GM/SCOOP Powder 1 scoop mixed with 8 ounces of fluid Orally Once a day , Taking Magnesium Oxide 400 MG Tablet 1 tablet with food Orally Once a day , Taking Aspirin 81 81 MG Tablet Delayed Release 1 tablet Orally Once a day , Taking Acetaminophen 500 MG Capsule 2 capsule as needed Orally every 6 hrs prn , Taking oxyCODONE HCl 30 MG Tablet 1 tab(s) 3 times a day and 1/2 tab qpm orally , Taking Valium 10 MG Tablet 1 tab(s) orally At Bed Time , Not- Taking Multivitamin 1 TAB ONCE A DAY , Not-Taking buPROPion HCl ER (SR) 150 MG Tablet Extended Release 12 Hour 1 tab(s) orally 2 times a day , Not-Taking Albuterol Sulfate HFA 108 (90 Base) MCG/ACT Aerosol Solution 2 puff(s) inhaled every 6 hours prn , Not-Taking Albuterol Sulfate HFA 108 (90 Base) MCG/ACT Aerosol Solution inhale 2 puffs by mouth every 6 hours as needed. , Not-Taking Diclofenac Sodium 75 MG Tablet Delayed Release Take 1 tablet by mouth twice daily. , Not-Taking Furosemide 20 MG Tablet 1 tablet Orally Once a day , Not-Taking Rollator Walker - - 1 as directed as directed , Notes to Pharmacist: diagnosis code: S72.002A, Not-Taking Commode Bedside - Miscellaneous as directed , Notes to Pharmacist: diagnosis code: S72.002A, Discontinued Cefadroxil 500 MG Capsule 1 capsule Orally every 12 hrs , Medication List reviewed and reconciled with the patient * Allergies: N aproxen: photosensitive dermatitis, Methadone: urinary retention, MS Contin: edema. Objective: * Vitals: W t: 172, Temp: 98.3, BP: 103/61, HR: 84, O2 Sat: 94%, Nurse: reviewed/recorded by marguerite, RR: 16. * Examination: G eneral Examination: General Appearance: N AD , alert; in bed; has just returned from [facility] appt and is very tired. H eart: R RR. L ungs: c lear to auscultation bilaterally. N eurologic Exam: a lert and oriented. E xtremities: l eft arm in splint , no leg edema. L ABS: date of labs . C reatinine 0 .6. B UN?9. S odium 1 38. P otassium 4 .4. c hloride 9 8. C O2 3 0. g lucose 9 1. S GOT/SGPT 2 10/30. a lk phos 1 14. t otal bilirubin 0 .3.?albumin 3 .4. B 12 5 14. I raad low at 11; folic acid normal at 10; blood sample inadequate to complete CBC. Assessment: * Assessment: 1. D egenerative joint disease (DJD) of lumbar spine - M47.816 (Primary) 2 .?Insomnia - G47.00 3 . C hronic pain syndrome - G89.4 4 . S eliezer stenosis of lumbar region with neurogenic claudication - M48.062 5 . F ormer smoker - Z87.891 6 . G ERD (gastroesophageal reflux disease) - K21.9 ? 7 . A ftercare following explantation of hip joint prosthesis - Z47.32 ?8. C losed fracture of left wrist with routine healing, subsequent encounter - S62.102D & #160; 9 . C hronic anemia - D64.9 Plan: * Treatment: 2. C hronic pain syndrome Continue traMADol HCl Tablet, 50 MG, 1 tablet as needed, Orally, every 8 hrs prn; C ontinue oxyCODONE HCl Tablet, 30 MG, 1 tab(s) 3 times a day and 1/2 tab qpm, orally. 3. G ERD (gastroesophageal reflux disease) Continue PriLOSEC OTC Tablet Delayed Release, 20 MG, 2 tablet 1/2 to 1 hour before morning meal, Orally, Once a day. 4. A ftercare following explantation of hip joint prosthesis Continue Senokot Tablet, 8.6 MG, 1 tab, Orally, Once a day; C ontinue MiraLax Powder, 17 GM/SCOOP, 1 scoop mixed with 8 ounces of fluid, Orally, Once a day; C ontinue Cefadroxil Capsule, 500 MG, 1 capsule, Orally, every 12 hrs; C ontinue Aspirin 81 Tablet Delayed Release, 81 MG, 1 tablet, Orally, Once a day; C ontinue Acetaminophen Capsule, 500 MG, 2 capsule as needed, Orally, every 6 hrs prn. Notes: continue with PT with plans to go home 5. C hronic anemia Start Cyanocobalamin Tablet, 1000 MCG, 1 tablet, Orally, Once a day; S tart Folic Acid Tablet, 1 MG, 1 tablet, Orally, Once a day; S tart Iron (Ferrous Sulfate) Tablet, 325 (65 Fe) MG, 1 tablet, Orally, Three times a Week. Notes: Pt states she received 4 U PRBC while at [facility]; she states she had multiple blood tests while there as well; blood tests not readily available and not in DC summary; will access results from ; pt is a very hard stick and nursing had to stick her several times which was very traumatic to the pt; so will not redraw for CBC ; will try for finger stick for repeat CBC when possible; will start Iron, B12, and FA; still need stool for OB * Follow Up: 2 Weeks * Images: Billing Information: * Visit Code: 50806 subs. level 4. * Procedure Codes: * Electronic signature of Delia Farrell APRN on 06/06/2025 at 03:54 PM EDT Sign off status: Pending * Provider: HERLINDA Mitchell Date: 0 12/27/2024 Generated for Malinda bal/Bubba/Naldoitting on: 1 03:54 PM EDT History and Physical Notes * Examination Category Sub-Category Detail Notes Category Not es General Examination Heart: RRR Lungs: clear to auscultatio n bilaterally Extremities: left arm in splint , no leg edema General Appearance: NAD , alert; in bed; has just returned from [facility] appt and is very tired Neurologic Exam: alert and oriented LABS Creatinine 0.6 Iron low at 11; folic acid normal at 10; blood sample inadequate to complete CBC SGOT/SGPT 23/9 glucose 91 Potassium 4.4 Sodium 138 BUN 9 chloride 98 CO2 30 alk phos 114 total bilirubin 0.3 albumin 3.4 date of labs 12/27/2024 B12 514
--- OUTSIDE RECORDS SUMMARY | 2025-01-31 08:00 | XMS_ITS ---
Author Organization [facility] Address [address] [place] [id number] Care Team Providers Care Veterinarian Poultry Name Role Phone Bar Huynh Primary Care Provider Alejandra Farrell [phone] Allergies Allergen (clinical drug ingredient) Drug/Non Drug Allergy documented on EMR Reaction Allergy Type Onset Date Status morphine MS Contin edema Drug Allergy Active naproxen Naproxen photosensitive dermatitis Drug Allergy Active methadone Methadone urinary retention Drug Allergy Active REASON FOR VISIT [facility] [place] [place] VISIT Medications Medication SIG (Take, Route, Frequency, Duration) Notes Start Date End Date Status Rollator Walker - 1 as directed as directed diagnosis code: S72.002A 10/07/2024 Active Commode Bedside - as directed diagnosis code : S72.002A 10/07/2024 Active Regular Diet - as directed Act karsten Multivitamin 1 TAB ONCE A DAY Not-Taking Iron (Ferrous Sulfate) 325 (65 Fe) MG 1 tablet Orally Three times a Week Active traMADol HCl 50 MG 1 tablet as needed Orally every 8 hrs prn Active Cyanocobalamin 1000 MCG 1 tablet Orally Once a day Active Folic Acid 1 MG 1 tablet Orally Once a day Active Senokot 8.6 MG 1 tab Orally Once a day Active PriLOSEC OTC 20 MG 2 tablet 1/2 to 1 hour before morning meal Orally Once a day Active MiraLax 17 GM/SCOOP 1 scoop mixed with 8 ounces of fluid Orally Once a day Active Aspirin 81 81 MG 1 tablet Orally Once a day Active Acetaminophen 500 MG 2 capsule as needed Orally every 6 hrs prn Active oxyCODONE HCl 30 MG 1 tab(s) 3 times a day and 1/2 tab qpm orally Active Valium 10 MG 1 tab(s) orally At Bed Time Active Social History Tobacco Use: Social History Observation Description Date Details (start date - stop date) Former Smoker NA - NA CURRENT TOBACCO USE: Question Answer Notes Are you a: former smoker Quit 10/2023 Vital Signs Blood pressure systolic 122 mm Hg 02/01/20 25 Blood pressure diastolic 80 mm Hg 025 Heart Rate 94 /min 01/31/2025 Respiratory Rate 17 /min 01/31/2025 Weight 171.8 lbs 01/31/2025 Encounters Encounter Location Date Provider Diagnosis [address] [place] [id number] 01/31/2025 Alejandra Farrell Degenerative joint disease (DJD) of lumbar spine M47.816 ; Aftercare following explantation of hip joint prosthesis Z47.32 ; Chronic pain syndrome G89.4 ; Insomnia G47.00 ; Spinal stenosis of lumbar region with neurogenic claudication M48.062 ; GERD (gastroesophageal reflux disease) K21.9 ; Closed fracture of left wrist with routine healing, subsequent encounter S62.102D ; Chronic anemia D64.9 and COPD (chronic obstructive pulmonary disease) J44.9 Assessments Encounter Date Diagnosis (ICD Code) Assessment Notes Treatment Notes Treatment Clinical Notes Section Notes 01/31/2025 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) 01/31/2025 Aftercare following explantation of hip joint prosthesis (ICD-10 - Z47.32) continue with PT with plans to go home 01/31/2025 Chronic pain syndrome (ICD-10 - G89.4) 01/31/2025 Insomnia (ICD-10 - G47.00) 01/31/2025 Spinal stenosis of lumbar region with neurogenic claudication (ICD-10 - M48.062) 01/31/2025 GERD (gastroesophageal reflux disease) (ICD-10 - K21.9) 01/31/2025 Closed fracture of left wrist with routine healing, subsequent encounter (ICD-10 - S62.102D) 01/31/2025 Chronic anemia (ICD-10 - D64.9) 01/31/2025 COPD (chronic obstructive pulmonary disease) (ICD-10 - J44.9) 01/31/2025 Other pt has greatly improved and is looking forward to going home soon Plan Of Treatment Medication Medication Name Sig Start Date Stop Date Notes Iron (Ferrous Sulfate) 325 ( 65 Fe) MG 1 tablet Orally Three times a Week Cyanocobalamin 1000 MCG 1 tablet Orally Once a day Folic Acid 1 MG 1 tablet Orally Once a day Senokot 8.6 MG 1 tab Orally Once a day PriLOSEC OTC 20 MG 2 tablet 1/2 to 1 ho ur before morning meal Orally Once a day MiraLax 17 GM/SCOOP 1 scoop mixed with 8 ounces of fluid Orally Once a day Aspirin 81 81 MG 1 tablet Orally Once a day Acetaminophen 500 MG 2 capsule as needed Orally every 6 hrs prn oxyCODONE HCl 30 MG 1 tab(s) 3 times a d ay and 1/2 tab qpm orally Valium 10 MG 1 tab(s) orally At B ed Time Treatment Notes Assessment Notes Aftercare following explanta tion of hip joint prosthesis continue with PT with plans to go home Other pt has greatly impro orion and is looking forward to going home soon Next Appt Details Follow Up: 2 Months or after DC at [facility], Reason: Provider Name:Bar Castro, 07/25/2025 01:30:00 PM, [address] [facility] [address], [address], [place], [place], [id number], Progress Notes * MARTINGEOVANNA CANTUMADISONOB:1955 (69 yo F)Acc No.[id number]:01/31/2025 Progress Notes Patient: CLIVE NÚÑEZ Provider: HERLINDA Mitchell :1955 A ge:69 Y S ex:Female Date:01/31/2025 Address:[address] [place] [address] [address] , [facility], [id number] Pcp:Bar Huynh Subjective: * Chief Complaints: * 1 . [facility] HOME VISIT. * HPI: H PI: For routine Residential visit; chart reviewed and patient examined; see ROS . * ROS: R ESPIRATORY: no S hortness of breath. n o C hest pain. n o?Chest congestion. n o C ough. C ARDIOLOGY: no C hest pain. L eg edema y es. n o S hortness of breath. G ASTROENTEROLOGY: Positive for d oes not like the food; she has been eating better. n o N ausea. n o V omiting. n o D iarrhea. C onstipation y es, t aking meds. M USCULOSKELETAL: Positive for c ontinues to folow with her orthopedic surgeons; she has been released for full weight bearing; she contiues to work with PT. * Medical History: D DD L-spine - [...] , Frequency: ,Years: , Determination:. * Medications: Zack spaulding traMADol HCl 50 MG Tablet 1 tablet [...] fluid Orally Once a day , Taking Aspirin 81 81 MG Tablet Delayed Release 1 tablet Orally Once a day , Taking Acetaminophen 500 MG Capsule 2 capsule as needed Orally every 6 hrs prn , Taking Cyanocobalamin 1000 MCG Tablet 1 tablet Orally Once a day , Taking Folic Acid 1 MG Tablet 1 tablet Orally Once a day , Taking Iron (Ferrous Sulfate) 325 (65 Fe) MG Tablet 1 tablet Orally Three times a Week , Taking Regular Diet - - as directed , Taking oxyCODONE HCl 30 MG Tablet 1 tab(s) 3 times a day and 1/2 tab at bedtime orally , Taking Valium 10 MG Tablet 1 tab(s) orally At Bed Time , Taking Rollator Walker - - 1 as directed as directed , Notes to Pharmacist: diagnosis code: S72.002A, Taking Commode Bedside - Miscellaneous as directed , Notes to Pharmacist: diagnosis code: S72.002A, Not-Taking Multivitamin 1 TAB ONCE A DAY , Discontinued Cefadroxil 500 MG Capsule 1 capsule Orally every 12 hrs , Discontinued Magnesium Oxide 400 MG Tablet 1 tablet with food Orally Once a day , Discontinued buPROPion HCl ER (SR) 150 MG Tablet Extended Release 12 Hour 1 tab(s) orally 2 times a day , Discontinued Albuterol Sulfate HFA 108 (90 Base) MCG/ACT Aerosol Solution 2 puff(s) inhaled every 6 hours prn , Discontinued Albuterol Sulfate HFA 108 (90 Base) MCG/ACT Aerosol Solution inhale 2 puffs by mouth every 6 hours as needed. , Discontinued Diclofenac Sodium 75 MG Tablet Delayed Release Take 1 tablet by mouth twice daily. , Discontinued Furosemide 20 MG Tablet 1 tablet Orally Once a day * Allergies: N aproxen: photosensitive dermatitis, Methadone: urinary retention, MS Contin: edema. Objective: * Vitals: W t: 171.8, Temp: 97.8, BP: 122/80, HR: 94, O2 Sat: 94%, Nurse: reviewed/recorded by marguerite, RR: 17. * Examination: G eneral Examination: General Appearance: N AD, appears healthy, alert, pleasant; sitting on her couch in her room; appears most comfortable. H eart: R RR. L ungs: C TAB A&P. A bdomen: b owel sounds present, soft and nontender. N eurologic Exam: alert and oriented. E xtremities: l eft wrist splint on;; some bilateral leg edema. ? Assessment: * Assessment: 1. A ftercare following explantation of hip joint prosthesis - Z47.32 (Primary) ?2. D egenerative joint disease (DJD) of lumbar spine - M47.816 3 . C hronic pain syndrome - G89.4 4 . I nsomnia - G47.00 5 . S eliezer stenosis of lumbar region with neurogenic claudication - M48.062 6 . G ERD (gastroesophageal reflux disease) - K21.9 7 . C losed fracture of left wrist with routine healing, subsequent encounter - S62.102D 8 . C hronic anemia - D64.9 & #160; 9 . C OPD (chronic obstructive pulmonary disease) - J44.9 Plan: * Treatment: 2. C hronic pain syndrome Continue oxyCODONE HCl Tablet, 30 MG, 1 tab(s) 3 times a day and 1/2 tab qpm, orally, Refills 0.? 3. I nsomnia Continue Valium Tablet, 10 MG, 1 tab(s), orally, At Bed Time, Refills 0. 4. G ERD (gastroesophageal reflux disease) Continue PriLOSEC OTC Tablet Delayed Release, 20 MG, 2 tablet 1/2 to 1 hour before morning meal, Orally, Once a day. 5. C hronic anemia Start Cyanocobalamin Tablet, 1000 MCG, 1 tablet, Orally, Once a day; S tart Folic Acid Tablet, 1 MG, 1 tablet, Orally, Once a day; S tart Iron (Ferrous Sulfate) Tablet, 325 (65 Fe) MG, 1 tablet, Orally, Three times a Week. 6. O thers Notes: pt has greatly improved and is looking forward to going home soon * Follow Up: 2 Months or after DC at [facility] * Images: Billing Information: * Visit Code: 69776 subs. level 4. * Procedure Codes: * Electronic signature of Delia Farrell APRN on 06/06/2025 at 03:53 PM EDT Sign off status: Pending * Provider: HERLINDA Mitchell Date: 0 01/31/2025 Generated for Malinda bal/Bubba/Juan on: 1 03:53 PM EDT History and Physical Notes * Examination Category Sub-Category Detail Notes Category Not es General Examination Heart: RRR Lungs: CTAB A&P Abdomen: bowel sounds present , soft and nontender Extremities: left wrist splint on ;; some bilateral leg edema General Appearance: NAD, appears healthy , alert, pleasant; sitting on her couch in her room; appears most comfortable Neurologic Exam: alert and oriented
--- OUTSIDE RECORDS SUMMARY | 2025-02-02 09:30 | XMS_ITS ---
[facility] Address [address] [place] [id number] Care Team Providers Care Cook Apprentice Name Role Phone Bar Huynh Primary Care Provider Allergies Allergen (clinical drug ingredient) Drug/Non Drug Allergy documented on EMR Reaction Allergy Type Onset Date Status morphine MS Contin edema Drug Allergy Active naproxen Naproxen photosensitive dermatitis Drug Allergy Active methadone Methadone urinary retention Drug Allergy Active REASON FOR VISIT 3 Month Follow Up Medications Medication SIG (Take, Route, Frequency, Duration) Notes Start Date End Date Status Senokot 8.6 MG 1 tab Orally Once a day Active Multivitamin 1 TAB ONCE A DAY Not-Taking Acetaminophen 500 MG 2 capsule as needed Orally every 6 hrs prn Active Aspirin 81 81 MG 1 tablet Orally Once a day Active MiraLax 17 GM/SCOOP 1 scoop mixed with 8 ounces of fluid Orally Once a day Active Iron (Ferrous Sulfate) 325 (65 Fe) MG [...] morning meal Orally Once a day Active oxyCODONE HCl 30 MG 1 tab(s) 3 times a d ay and 1/2 tab qpm orally Active Valium 10 MG 1 tab(s) orally At B ed Time Active Social History Tobacco Use: Social History Observation Description Date Details (start date - stop date) Former Smoker NA - NA CURRENT TOBACCO USE: Question Answer Notes Are you a: former smoker Quit 10/2023 Problems Problem Type SNOMED Code ICD Code Onset Dates Problem Status W/U Status Risk Notes Problem Body mass index 30+ - obesity (665644663) BMI 30.0-30.9,a dult (Z68.30) Active confirmed Vital Signs Blood pressure systolic 120 mm Hg 02/03/20 25 Blood pressure diastolic 78 mm Hg 025 Heart Rate 70 /min 02/02/2025 Height 63.50 in 02/02/2025 Weight 172.4 lbs 02/02/2025 BMI 30.06 kg/m2 02/02/2025 Encounters Encounter Location Date Provider Diagnosis [facility] [address] [facility] [address] [place], [place] [id number] 02/02/2025 Bar Huynh Degenerative joint disease (DJD) of lumbar spine M47.816 ; Chronic pain syndrome G89.4 ; Insomnia G47.00 ; Spinal stenosis of lumbar region with neurogenic claudication M48.062 ; GERD (gastroesophageal reflux disease) K21.9 ; Closed fracture of left wrist with routine healing, subsequent encounter S62.102D ; Chronic anemia D64.9 ; BMI 30.0-30.9,adult Z68.30 and COPD (chronic obstructive pulmonary disease) J44.9 Assessments Encounter Date Diagnosis (ICD Code) Assessment Notes Treatment Notes Treatment Clinical Notes Section Notes 02/02/2025 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) 02/02/2025 Chronic pain syndrome (ICD-10 - G89.4) 02/02/2025 Insomnia (ICD-10 - G47.00) 02/02/2025 Spinal stenosis of lumbar region with neurogenic claudication (ICD-10 - M48.062) 02/02/2025 GERD (gastroesophageal reflux disease) (ICD-10 - K21.9) 02/02/2025 Closed fracture of left wrist with routine healing, subsequent encounter (ICD-10 - S62.102D) 02/02/2025 Chronic anemia (ICD-10 - D64.9) 02/02/2025 BMI 30.0-30.9,adult (ICD-10 - Z68.30) 02/02/2025 COPD (chronic obstructive pulmonary disease) (ICD-10 - J44.9) Plan Of Treatment Medication Medication Name Sig [...] before morning meal Orally Once a day oxyCODONE HCl 30 MG 1 tab(s) 3 times a d ay and 1/2 tab qpm orally Valium 10 MG 1 tab(s) orally At B ed Time Next Appt Details Follow Up: 3 Months, Reason: Provider Name:Bar Seay et, 07/25/2025 01:30:00 PM, [address] [facility] [address] [facility], [address], [place], [place], [id number], Progress Notes * DYLAN MARTINOB:1955 (69 yo F)Acc No.[id number]:02/02/2025 Progress Notes Patient: CLIVE NÚÑEZ Provider: Bar Huynh M.D. :1955 A ge:69 Y S ex:Female Date:02/02/2025 Address:[address] [facility] [address], [place] [id number] Subjective: * Chief Complaints: * 1 . 3 Month Follow Up. * HPI: H PI: Clive comes in for scheduled 3 month follow-up. She currently resides at [facility] rehabbing from repair of a left wrist fracture and left total hip arthroplasty performed at about 2 months ago. She is making slow steady progress. She is now allowed full weightbearing on her leg. She is scheduled to follow-up with the hand surgeon next week and is hoping to be released to full weightbearing with her left arm. She is being followed by nephrology and and she tells me the plan is to start her on a daily injection for her osteoporosis. She was also found to be anemic during her admission and has been on iron, folate, and B12 supplements. She had recent blood work at her follow-up appointment at and her hemoglobin is up to 10.6. * ROS: R ESPIRATORY: no S hortness [...] C onstipation y es, t aking meds. * Medical History: D DD L-spine - MRI 05/2002, Thoracic kyphosis, Tobacco addiction-quit smoking 2023, Declines health screenings - 08/2021; 08/2022; 12/2023, Right wrist fx - 01/2022, Anemia, Lumbar stenosis, GERD, Anxiety, Insomnia, COPD, Falls resulting in fractures, Severe osteoporosis. * Surgical History: T eeth removed 09/2018, ORIF LEFT RADIUS; LEFT TOTAL HIP ARTHROPLASTY - Ortho 12/12/2024. * Hospitalization/Major Diagno stic Procedure: U [...] Frequency: ,Years: , Determination:. * Medications: T chelly traMADol HCl 50 MG Tablet 1 tablet as needed Orally every 8 hrs prn , Taking oxyCODONE HCl 30 MG Tablet 1 tab(s) 3 times a day and 1/2 tab qpm orally , Taking Valium 10 MG Tablet 1 tab(s) orally At Bed Time , Taking Senokot 8.6 MG Tablet 1 [...] tablet Orally Three times a Week , Not-Taking Multivitamin 1 TAB ONCE A DAY , Medication List reviewed and reconciled with the patient * Allergies: N aproxen: photosensitive dermatitis, Methadone: urinary retention, MS Contin: edema. Objective: * Vitals: W t: 172.4, Temp: 97.4, BP: 120/78, HR: 70, O2 Sat: 96%, Nurse: dylan, Ht: 63.50, BMI:30.06. * Examination: G eneral Examination: General Appearance: S he is alert and oriented. She appears in no distress.. H eart: R SR. L ungs: G enerally diminished breath sounds otherwise clear. E xtremities: S he has a splint on her left wrist. There is trace edema of the left lower leg. She is ambulating with a rolling walker. Assessment: * Assessment: 1. D egenerative joint disease (DJD) of lumbar spine - M47.816 (Primary) 2 .?Chronic pain syndrome - G89.4 3 . I nsomnia - G47.00 4 . S eliezer stenosis of lumbar region with neurogenic claudication - M48.062 5 . G ERD (gastroesophageal reflux disease) - K21.9 6 . C losed fracture of left wrist with routine healing, subsequent encounter - S62.102D 7 . C hronic anemia - D64.9 8 . B [place] 30.0-30.9,adult - Z68.30 9 . C OPD (chronic obstructive pulmonary disease) - J44.9 Plan: * Treatment: 2. I nsomnia Continue Valium Tablet, 10 MG, 1 tab(s), orally, At Bed Time, Refills 0. 3. G ERD (gastroesophageal reflux disease) Continue PriLOSEC OTC Tablet Delayed Release, 20 MG, 2 tablet 1/2 to 1 hour before morning meal, Orally, Once a day. 4. C hronic anemia Continue Cyanocobalamin Tablet, 1000 MCG, 1 tablet, Orally, Once a day; C ontinue Folic Acid Tablet, 1 MG, 1 tablet, Orally, Once a day; C ontinue Iron (Ferrous Sulfate) Tablet, 325 (65 Fe) MG, 1 tablet, Orally, Three times a Week. * Procedure Codes: G 2211 Complex e/m visit add on, 1036F TOBACCO NON-USER, G8783 BP SCR PRFRM RCMDD DEFIND SCR INTVL, G8752 MOST RECENT SYSTOLIC BP < 140MM HG, G8754 MOST RECENT DIASTOLIC BP < 90MM HG * Follow Up: 3 Months * Images: Billing Information: * Visit Code: 90100 Office Visit, Est Pt., Level 3. * Procedure Codes: G2211 Complex e/m visit add on. 1036F TOBACCO NON-USER. G8783 BP SCR PRFRM RCMDD DEFIND SCR INTVL. G8752 MOST RECENT SYSTOLIC BP < 140MM HG. G8754 MOST RECENT DIASTOLIC BP < 90MM HG. * Electronic signature of Bar Huynh MD on 06/06/2025 at 03:53 PM EDT Sign off status: Pending * Provider: Bar Huynh M.D. Date: 0 02/02/2025 Generated for Malinda bal/Bubba/Naldoitting on: 1 03:53 PM EDT History and Physical Notes * HPI (History of Present Illness) Category Sub-Category Detail Notes Category Not es HPI Clive comes in for scheduled 3 month follow-up. She currently resides at [facility] rehabbing from repair of a left wrist fracture and left total hip arthroplasty performed at about 2 months ago. She is making slow steady progress. She is now allowed full weightbearing on her leg. She is scheduled to follow-up with the hand surgeon next week and is hoping to be released to full weightbearing with her left arm. She is being followed by nephrology and and she tells me the plan is to start her on a daily injection for her osteoporosis. She was also found to be anemic during her admission and has been on iron, folate, and B12 supplements. She had recent blood work at her follow-up appointment at and her hemoglobin is up to 10.6. Examination Category Sub-Category Detail Notes Category Not es General Examination Heart: RSR Lungs: Generally diminished breath sounds otherwise clear Extremities: She has a splint on her left wrist. There is trace edema of the left lower leg. She is ambulating with a rolling walker General Appearance: She is alert and chris ented. She appears in no distress.
--- OUTSIDE RECORDS SUMMARY | 2025-02-21 10:00 | XMS_ITS ---
Author Organization [facility] Address [address] [place] [id number] Care Team Providers Care Bomb Squad Officer Name Role Phone Bar Huynh Primary Care Provider Allergies Allergen (clinical drug ingredient) Drug/Non Drug Allergy documented on EMR Reaction Allergy Type Onset Date Status morphine MS Contin edema Drug Allergy Active naproxen Naproxen photosensitive dermatitis Drug Allergy Active methadone Methadone urinary retention Drug Allergy Active REASON FOR VISIT f/u on [facility] discharge Medications Medication SIG (Take, Route, Frequency, Duration) Notes Start Date End Date Status traMADol HCl 50 MG 1 tablet as needed Orally every 8 hrs prn Active Senokot 8.6 MG 1 tab Orally Once a day Active Acetaminophen 500 MG 2 capsule as needed Orally every 6 hrs prn Active MiraLax 17 GM/SCOOP 1 scoop mixed with 8 ounces of fluid Orally Once a day Active Aspirin 81 81 MG 1 tablet Orally Once a day Active Cyanocobalamin 1000 MCG 1 tablet Orally Once a day Active Folic Acid 1 MG 1 tablet Orally Once a day Active Iron (Ferrous Sulfate) 325 (65 Fe) MG 1 tablet Orally Three times a Week Active Valium 10 MG 1 tab(s) orally At B ed Time Active PriLOSEC OTC 20 MG 2 tablet 1/2 to 1 ho ur before morning meal Orally Once a day Active oxyCODONE HCl 30 MG 1 tab(s) 3 times a d ay and 1/2 tab qpm orally Active Social History Tobacco Use: Social History Observation Description Date Details (start date - stop date) Former Smoker NA - NA CURRENT TOBACCO USE: Question Answer Notes Are you a: former smoker Quit 10/2023 Problems Problem Type SNOMED Code ICD Code Onset Dates Problem Status W/U Status Risk Notes Problem S/P total left hip arthroplasty (Z96.642) Active confirmed Vital Signs Blood pressure systolic 122 mm Hg 02/22/20 25 Blood pressure diastolic 80 mm Hg 025 Heart Rate 100 /min 02/21/2025 Height 63.50 in 02/21/2025 Weight 168 lbs 02/21/2025 BMI 29.29 kg/m2 02/21/2025 Encounters Encounter Location Date Provider [facility] [address] [facility] [address] [place], [place] [id number] 02/21/2025 R Esau Huynh Closed fracture of l eft wrist with routine healing, subsequent encounter S62.102D ; S/P total left hip arthroplasty Z96.642 ; Degenerative joint disease (DJD) of lumbar spine M47.816 ; Chronic pain syndrome G89.4 ; Insomnia G47.00 ; Spinal stenosis of lumbar region with neurogenic claudication M48.062 ; GERD (gastroesophageal reflux disease) K21.9 ; Chronic anemia D64.9 ; COPD (chronic obstructive pulmonary disease) J44.9 and BMI 29.0-29.9,adult Z68.29 Assessments Encounter Date Diagnosis (ICD Code) Assessment Notes Treatment Notes Treatment Clinical Notes Section Notes 02/21/2025 Closed fracture of left wrist with routine healing, subsequent encounter (ICD-10 - S62.102D) 02/21/2025 S/P total left hip arthroplasty (ICD-10 - Z96.642) 02/21/2025 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) 02/21/2025 Chronic pain syndrome (ICD-10 - G89.4) 02/21/2025 Insomnia (ICD-10 - G47.00) 02/21/2025 Spinal stenosis of lumbar region with neurogenic claudication (ICD-10 - M48.062) 02/21/2025 GERD (gastroesophageal reflux disease) (ICD-10 - K21.9) 02/21/2025 Chronic anemia (ICD-10 - D64.9) 02/21/2025 COPD (chronic obstructive pulmonary disease) (ICD-10 - J44.9) 02/21/2025 BMI 29.0-29.9,adult (ICD-10 - Z68.29) 02/21/2025 Other Discharge summary with available lab/diagnostic imaging results obtained and reviewed. Discharge medication list reconciled. Appropriate counseling provided. Moderate Complexity Plan Of Treatment Medication Medication Name Sig Start Date Stop Date Notes Cyanocobalamin 1000 MCG 1 tablet Orally Once a day Folic Acid 1 MG 1 tablet Orally Once a day Iron (Ferrous Sulfate) 325 ( 65 Fe) MG 1 tablet Orally Three times a Week Valium 10 MG 1 tab(s) orally At B ed Time PriLOSEC OTC 20 MG 2 tablet 1/2 to 1 ho ur before morning meal Orally Once a day oxyCODONE HCl 30 MG 1 tab(s) 3 times a d ay and 1/2 tab qpm orally Treatment Notes Assessment Notes Other Discharge summary wi th available lab/diagnostic imaging results obtained and reviewed. Discharge medication list reconciled. Appropriate counseling provided. Moderate Complexity Next Appt Details Follow Up: as scheduled, Day son: Provider Name:Bar Castro, 07/25/2025 01:30:00 PM, [address] [facility] [address] [facility], [address], [place], [place], [id number], Progress Notes * GEOVANNA MARTINMADISONOB:1955 (69 yo F)Acc No.[id number]:02/21/2025 Patient: CLIVE NÚÑEZ Provider: Bar Huynh M.D. :1955 A ge:69 Y S ex:Female Date:02/21/2025 Address:[address] [facility] [address] [address] , [facility] [id number] Subjective: * Chief Complaints: * 1 . f/u on [facility] discharge. * HPI: H PI: Patient is here today for A Transition of Care Visit. Discharge from the following Facility: [facility] where patient was admitted for rehab following admission to for total hip replacement, left and repair of left wrist fracture. Discharge date: Thursday02/11/2025,Date of phone contact following discharge: 02/14/2025 . She has been doing reasonably well at home since discharge. She is getting around with a straight cane and rolling walker at home. She has been released for weightbearing on her left arm. She is continuing with PT/OT through outpatient rehab at [facility]. * ROS: R ESPIRATORY: no S hortness [...] ,Years: , Determination:. * Medications: T aking PriLOSEC OTC 20 MG Tablet Delayed Release 2 tablet 1/2 to 1 hour before morning meal Orally Once a day , Taking Cyanocobalamin 1000 MCG Tablet 1 tablet Orally Once a day , Taking Folic Acid 1 MG Tablet 1 tablet Orally Once a day , Taking Iron (Ferrous Sulfate) 325 (65 Fe) MG Tablet 1 tablet Orally Three times a Week , Taking traMADol HCl 50 MG Tablet 1 tablet as needed Orally every 8 hrs prn , Taking Senokot 8.6 MG Tablet 1 tab Orally Once a day , Taking MiraLax [...] 1 tab(s) orally At Bed Time , Discontinued Multivitamin 1 TAB ONCE A DAY , Medication List reviewed and reconciled with the patient * Allergies: N aproxen: photosensitive dermatitis, Methadone: urinary retention, MS Contin: edema. Objective: * Vitals: W t: 168, Temp: 000, BP: 122/80, HR: 100, Nurse: pe, Ht: 63.50, BMI:29.29. * Examination: G eneral Examination: A ffect is fairly good. Color is normal. She has a splint on her left wrist. Lungs are clear to auscultation. Heart is regular. Noted with thoracic kyphosis. Decrease in normal lumbar lordosis. There is trace edema on the left leg. Assessment: * Assessment: 1. S /P total left hip arthroplasty - Z96.642 (Primary) 2 . C losed fracture of left wrist with routine healing, subsequent encounter - S62.102D 3 . D egenerative joint disease (DJD) of lumbar spine - M47.816 4 . C hronic pain syndrome - G89.4 5 . I nsomnia - G47.00 6 . S eliezer stenosis of lumbar region with neurogenic claudication - M48.062 7 . G ERD (gastroesophageal reflux disease) - K21.9 8 . C hronic anemia - D64.9 9 . C OPD (chronic obstructive pulmonary disease) - J44.9 1 0. B [place] 29.0-29.9,adult - Z68.29 Plan: * Treatment: 2. I nsomnia Continue [...] 1 tablet, Orally, Three times a Week. 5. O thers Notes: Discharge summary with available lab/diagnostic imaging results obtained and reviewed. Discharge medication list reconciled. Appropriate counseling provided. Moderate Complexity * Procedure Codes: 9 9495 TRANS CARE [facility] 14 DAY DISCH, 1111F DSCHR MED/CURENT MED MERGE, G2211 Complex e/m visit add on, 1036F TOBACCO NON-USER, G8420 BMI<30 AND >=22 CALC & DOCU, G8783 BP SCR PRFRM RCMDD DEFIND SCR INTVL, G8752 MOST RECENT SYSTOLIC BP < 140MM HG, G8754 MOST RECENT DIASTOLIC BP < 90MM HG * Follow Up: a s scheduled * Images: Billing Information: * Visit Code: 19840 Office Visit, Est Pt., Level 3. * Procedure Codes: 72735 TRANS CARE [facility] 14 DAY DISCH. 1111F DSCHR MED/CURENT MED MERGE. G2211 Complex e/m visit add on. 1036F TOBACCO NON-USER. G8420 BMI<30 AND >=22 CALC & DOCU. G8783 BP SCR PRFRM RCMDD DEFIND SCR INTVL. G8752 MOST RECENT SYSTOLIC BP < 140MM HG. G8754 MOST RECENT DIASTOLIC BP < 90MM HG. * Electronic signature of Bar Huynh MD on 06/06/2025 at 03:54 PM EDT Sign off status: Pending * Provider: Bar Huynh M.D. Date: 0 02/21/2025 Generated for Malinda bal/Bubba/Juan on: 1 03:54 PM EDT History and Physical Notes * HPI (History of Present Illness) Category Sub-Category Detail Notes Category Not es HPI Patient is here toda y for A Transition of Care Visit. Discharge from the following Facility: [facility] where patient was admitted for rehab following admission to for total hip replacement, left and repair of left wrist fracture. Discharge date: Thursday02/11/2025,Date of phone contact following discharge: 02/14/2025 She has been doing reasonably well at home since discharge. She is getting around with a straight cane and rolling walker at home. She has been released for weightbearing on her left arm. She is continuing with PT/OT through outpatient rehab at [facility]. Examination Category Sub-Category Detail Notes Category Not es General Examination Affect i s fairly good. Color is normal. She has a splint on her left wrist. Lungs are clear to auscultation. Heart is regular. Noted with thoracic kyphosis. Decrease in normal lumbar lordosis. There is trace edema on the left leg.
--- OUTSIDE RECORDS SUMMARY | 2025-04-20 10:00 | XMS_ITS ---
[facility] Address [address] [place] [id number] Care Team Providers Care Embryology Professor Name Role Phone Bar Huynh Primary Care Provider Allergies Allergen (clinical drug ingredient) Drug/Non Drug Allergy documented on EMR Reaction Allergy Type Onset Date Status morphine MS Contin edema Drug Allergy Active naproxen Naproxen photosensitive dermatitis Drug Allergy Active methadone Methadone urinary retention Drug Allergy Active REASON FOR VISIT 3 months, Needs all health screenings which she has declined in the past. Medications Medication SIG (Take, Route, Frequency, Duration) Notes Start Date End Date Status Nabumetone 500 MG 1 tablet Orally Twic e a day; Duration: 30 days 04/20/2025 Active Lidoderm 5 % 1 patch remove after 12 hours Externally Once a day 04/20/2025 Active Iron (Ferrous Sulfate) 325 (65 Fe) MG 1 tablet Orally Three times a Week Active Folic Acid 1 MG 1 tablet Orally Once a day Active Acetaminophen 500 MG 2 capsule as needed Orally every 6 hrs prn Active Valium 10 MG 1 tab(s) orally At B ed Time Active Cyanocobalamin 1000 MCG 1 tablet Orally Once a day Active Aspirin 81 81 MG 1 tablet Orally Once a day Active PriLOSEC OTC 20 MG 2 tablet 1/2 to 1 ho ur before morning meal Orally Once a day Active MiraLax 17 GM/SCOOP 1 scoop mixed with 8 ounces of fluid Orally Once a day Active Senokot 8.6 MG 1 tab Orally Once a day Active oxyCODONE HCl 30 MG 1 tab(s) 3 times a d ay and 1/2 tab qpm orally Active traMADol HCl 50 MG 1 tablet as needed Orally every 8 hrs prn Not-Dennisin g Social History Tobacco Use: Social History Observation Description Date Details (start date - stop date) Former Smoker NA - NA CURRENT TOBACCO USE: Question Answer Notes Are you a: former smoker Quit 10/2023 Vital Signs Blood pressure systolic 120 mm Hg 04/20/20 25 Blood pressure diastolic 80 mm Hg 025 Heart Rate 120 /min 04/20/2025 Height 63.50 in 04/20/2025 Weight 165 lbs 04/20/2025 BMI 28.77 kg/m2 04/20/2025 Encounters Encounter Location Date Provider Diagnosis [facility] [address] [facility] [address] [place], [place] [id number] 04/20/2025 R Esau Huynh Closed fracture of l [...] (chronic obstructive pulmonary disease) J44.9 and BMI 28.0-28.9,adult Z68.28 Assessments Encounter Date Diagnosis (ICD Code) Assessment Notes Treatment Notes Treatment Clinical Notes Section Notes 04/20/2025 Closed fracture of left wrist with routine healing, subsequent encounter (ICD-10 - S62.102D) 04/20/2025 S/P total left hip arthroplasty (ICD-10 - Z96.642) Continue follow-up with [facility] 04/20/2025 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) 04/20/2025 Chronic pain syndrome (ICD-10 - G89.4) 04/20/2025 Insomnia (ICD-10 - G47.00) 04/20/2025 Spinal stenosis of lumbar region with neurogenic claudication (ICD-10 - M48.062) 04/20/2025 GERD (gastroesophageal reflux disease) (ICD-10 - K21.9) 04/20/2025 Chronic anemia (ICD-10 - D64.9) 04/20/2025 COPD (chronic obstructive pulmonary disease) (ICD-10 - J44.9) 04/20/2025 BMI 28.0-28.9,adult (ICD-10 - Z68.28) Plan Of Treatment Medication Medication Name Sig Start Date Stop Date Notes Nabumetone 500 MG 1 tablet Orally Twic e a day; Duration: 30 days 04/20/2025 Lidoderm 5 % 1 patch remove after 12 hours Externally Once a day 04/20/2025 Iron (Ferrous Sulfate) 325 ( 65 Fe) MG 1 tablet Orally Three times a Week Folic Acid 1 MG 1 tablet Orally Once a day Valium 10 MG 1 tab(s) orally At Bed Time Cyanocobalamin 1000 MCG 1 tablet Orally Once a day PriLOSEC OTC 20 MG 2 tablet 1/2 to 1 ho ur before morning meal Orally Once a day oxyCODONE HCl 30 MG 1 tab(s) 3 times a d ay and 1/2 tab qpm orally Treatment Notes Assessment Notes S/P total left hip arthroplasty Continue follow-up with orthopedics Next Appt Details Follow Up: 3 Months, Reason: Provider Name:Bar Castro, 07/25/2025 01:30:00 PM, [address] [facility] [address] [facility], [place], [place], [id number], Progress Notes * DYLAN MARTINOB:1955 (69 yo F)Acc No.[id number]:04/20/2025 Progress Notes Patient: CLIVE NÚÑEZ Provider: Bar Huynh M.D. :1955 A ge:69 Y S ex:Female Date:04/20/2025 Address:[address] , [facility], [id number] Subjective: * Chief Complaints: * 1 . 3 months. 2. Needs all health screenings which she has declined in the past.. * HPI: H PI: Clive returns for scheduled follow-up. She has been released to full weightbearing on her leg and arm but continues to follow with orthopedics at . She is now ambulating with a straight cane. She complains of considerable amount of pain in the left hip and left shoulder. She states the OxyContin does not fully relieve her pain. * ROS: D ERMATOLOGY: no R juan ramon. n o H vicky. G ASTROENTEROLOGY: no N ausea. n o V omiting. n o D iarrhea.? U ROLOGY: no D ifficulty urinating. n o B lood in urine. * Medical History: D DD L-spine - [...] ,Years: , Determination:. * Medications: T aking Senokot 8.6 MG Tablet 1 tab Orally Once a day , Taking MiraLax 17 GM/SCOOP Powder 1 scoop mixed with 8 ounces of fluid Orally Once a day , Taking Aspirin 81 81 MG Tablet Delayed Release 1 tablet Orally Once a day , Taking Acetaminophen 500 MG Capsule 2 capsule as needed Orally every 6 hrs prn , Taking Valium 10 MG Tablet 1 tab(s) orally At Bed Time , Taking PriLOSEC OTC 20 MG Tablet [...] Orally Three times a Week , Taking oxyCODONE HCl 30 MG Tablet 1 tab(s) 3 times a day and 1/2 tab qpm orally , Not-Taking traMADol HCl 50 MG Tablet 1 tablet as needed Orally every 8 hrs prn , Medication List reviewed and reconciled with the patient * Allergies: N aproxen: photosensitive dermatitis, Methadone: urinary retention, MS Contin: edema. Objective: * Vitals: W t: 165, Temp: 97.6, BP: 120/80, HR: 120, O2 Sat: 97% on RA, Nurse: dylan, Ht: 63.50, BMI:28.77. * Examination: G eneral Examination: General Appearance: S he is alert and oriented. She appears in no distress.. H eart: R SR. L ungs: G enerally diminished breath sounds otherwise clear. E xtremities: There is trace edema of the left lower leg. She is ambulating with a straight cane. Assessment: * Assessment: 1. S /P total [...] pulmonary disease) - J44.9 1 0. B NV 28.0-28.9,adult - Z68.28 Plan: * Treatment: 2. C hronic pain syndrome Continue oxyCODONE HCl Tablet, 30 MG, 1 tab(s) 3 times a day and 1/2 tab qpm, orally, Refills 0.? 3. I nsomnia Continue Valium Tablet, 10 MG, 1 tab(s), orally, At Bed Time, Refills 0. 4. S eliezer stenosis of lumbar region with neurogenic claudication Start Lidoderm Patch, 5 %, 1 patch remove after 12 hours, Externally, Once a day, 30, Refills 2;?Start Nabumetone Tablet, 500 MG, 1 tablet, Orally, Twice a day, 30 days, 60, Refills 2. ? 5. G ERD (gastroesophageal reflux disease) Continue PriLOSEC OTC Tablet Delayed Release, 20 MG, 2 tablet 1/2 to 1 hour before morning meal, Orally, Once a day. 6. C hronic anemia Continue Cyanocobalamin Tablet, 1000 [...] * Images: Billing Information: * Visit Code: 57907 Office Visit, Est Pt., Level 3. * [...] * Provider: Bar Huynh M.D. Date: 0 04/20/2025 Generated for Malinda bal/Bubba/Juan on: 1 03:54 PM EDT History and Physical Notes * HPI (History of Present Illness) Category Sub-Category Detail Notes Category Not es HPI Clive returns f or scheduled follow-up. She has been released to full weightbearing on her leg and arm but continues to follow with orthopedics at . She is now ambulating with a straight cane. She complains of considerable amount of pain in the left hip and left shoulder. She states the OxyContin does not fully relieve her pain. Examination Category Sub-Category Detail Notes Category Not es General Examination Heart: RSR Lungs: Generally diminished breath sounds otherwise clear Extremities: There is trace edema of the left lower leg. She is ambulating with a straight cane General Appearance: She is alert and chris ented. She appears in no distress.
--- OUTSIDE RECORDS SUMMARY | 2025-06-06 15:53 | XMS_ITS | Encounter Summary ---
Author Organization [facility] Address [address] 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 Mark Alberto DO [address] [place] [address] Phone: tel: fax: Juan Dickson MD [address] [address] Phone: tel: fax: Referral ID Status Reason Start Date Expiration Date Visits Re quested Visits Authorized [id number] Closed 10/13/2024 04/14/2026 1 1 Encounter Details Date Type Department Care Team (Late st Contact Info) Description 10/13/2024 [facility] [address] [place] [address] Mark Alberto DO [address] [place] [address] 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 (Primary Dx) Social History Tobacco Use Types Packs/Day Years Used Date Smoking Tobacco: Never Assessed Comments Unknown Sex and Gender Information Value Date Recorded Sex Assigned at Not on file Legal Sex Female 3:20 PM EST Gender Identity Not on file Sexual Orientation Not on file documented as of this encounter Plan of Treatment Upcoming Encounters Date Type Department Care Team (Late st Contact Info) Description 06/22/2025 2:00 PM EDT Office Visit Medical Office Building Surgery [facility] [address] [facility], [address] [place] [address] Juan Dickson MD [address] [facility] [address] [place] [address] Scheduled Referrals Name Type Priority Associated Diagnoses Order Schedule Ambulatory referral to Orthopaedics Joint Reconstruction Outpatient Referral Routine 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
--- OUTSIDE RECORDS SUMMARY | 2025-06-06 15:53 | XMS_ITS | Encounter Summary ---
Author Organization [facility] Address [address] [place] [address] Care Team Providers Care Commutator Assembler Name Role Phone Jarocho Huynh MD Primary Care Provider +1- [phone] Encounter Details Date Type Department Care Team ([facility] Contact Info) Description 04/21/2025 Telephone Medical Office Building Surgery [facility] [address] [facility], [address] [place] [address] Juan Dickson MD [address] [place] [address] Social History Tobacco Use Types Packs/Day Years Used Date Smoking Tobacco: Former Cigarettes 2 52 0 10/23/1971 - 10/23/2023 Smokeless Tobacco: Never Alcohol Use Standard Drinks/Week Comments Never 0 (1 standard drink = 0.6 oz pur e alcohol) Humiliation, Afraid, Rape, and Kick questionnair e Answer Date Recorded Within the last year, have y ou been afraid of your partner or ex-partner? No 12/13/2024 Within the last year, have y ou been humiliated or emotionally abused in other ways by your partner or ex-partner? No Within the last year, have y ou been kicked, hit, slapped, or otherwise physically hurt by your partner or ex-partner? No 12/13/2024 Within the last year, have y ou been raped or forced to have any kind of sexual activity by your partner or ex-partner? No 12/13/2024 PHQ-2 Answer Date Recorded Patient Health Questionnaire-2 Score 0 02/23/2025 Hunger Vital Sign Answer Date Recorded Within the past 12 months, y ou worried that your food would run out before you got the money to buy more. Never true 12/14/19 25 Within the past 12 months, t he food you bought just didn't last and you didn't have money to get more. Never true 12/13/2024 PRAPARE - Transportation Answer Date Re corded In the past 12 months, has l ack of transportation kept you from medical appointments or from getting medications? No 11/23 In the past 12 months, has l ack of transportation kept you from meetings, work, or from getting things needed for daily living? No 12/13/2024 Housing Stability Vital Sign Answer Eh e Recorded In the last 12 months, was t here a time when you were not able to pay the mortgage or rent on time? No 12/13/2024 In the past 12 months, how m any times have you moved where you were living? 0 12/13/2024 At any time in the past 12 m [facility], were you homeless or living in a residential (including now)? No 12/13/2024 Utilities Answer Date Recorded In the past 12 months has th e electric, gas, oil, or water company threatened to shut off services in your home? No 12/13/2024 Comments No Sex and Gender Information Value Date Recorded Sex Assigned at Not on file Legal Sex Female 3:20 PM EST Gender Identity Not on file Sexual Orientation Not on file documented as of this encounter Miscellaneous Notes * Telephone Encounter - Jono Chavez - 04/21/2025 12:30 PM EDT Left message for patient that Dr. Dickson has to be out of the office during her appointment on 04/27.Provided callback number to reschedule. documented in this encounter Plan of Treatment Upcoming Encounters Date Type Department Care Team ([facility] st Contact Info) Description 06/22/2025 2:00 PM EDT Office Visit Medical Office Building Surgery Spine [facility] [address] [facility], [address] [place] [address] Juan Dickson MD [address] [place] [address] documented as of this encounter Visit Diagnoses Not on filedocumented in this encounter Additional Health Concerns Assessment Noted Time A fall risk assessment has been complete d for the patient 02/23/2025 3:46 PM EDT A Body Mass Index follow-up plan has been documented for the patient 02/23/2025 8:00 PM EDT documented as of this encounter Care Teams Commutator Assembler Relationship Specialty Start Date End Date Jarocho Huynh MD [address] [place] [address] PCP - General 10/27/24 documented as of this encounter
--- OUTSIDE RECORDS SUMMARY | 2025-06-06 15:53 | XMS_ITS | Encounter Summary ---
Author Organization [facility] Address [address] [place] [address] Care Team Providers Care Doll Wig Maker Name Role Phone Jarocho Huynh MD Primary Care Provider +1- [phone] Encounter Details Date Type Department Care Team ([facility] Contact Info) Description 05/31/2025 Telephone [facility] [address] [facility], [address] [place] [address] Jose Gilmore Social History Tobacco Use Types Packs/Day Years [...] any time in the past 12 m onths, were you homeless or living in a fpc (including now)? No 12/13/2024 Utilities Answer Date [...] encounter Miscellaneous Notes * Telephone Encounter - Jose Gilmore - 05/31/2025 2:49 PM EDT Called pt regarding labs, fax labs to [facility] today with confirmation. documented in this encounter Plan of Treatment Upcoming Encounters Date Type Department Care Team (Late st Contact Info) Description 06/22/2025 2:00 PM EDT Office Visit Medical Office Building Surgery [facility] [address] [facility], [address] [place] [address] Juan Dickson MD [address] [facility] [address] [place] [phone] documented as of this encounter Visit Diagnoses Not on filedocumented in this encounter Additional Health Concerns Assessment Noted Time A fall risk assessment has been complete d for the patient 02/23/2025 3:46 PM EDT A Body Mass Index follow-up plan has been documented for the patient 02/23/2025 8:00 PM EDT documented as of this encounter Care Teams Doll Wig Maker Relationship Specialty Start Date End Date Jarocho Huynh MD [address] [place] [address] PCP - General 10/27/24 documented as of this encounter
--- OUTSIDE RECORDS SUMMARY | 2025-06-06 15:54 | XMS_ITS | Patient Health Record ---
[facility] Organization [facility] Address [address] [place] [id number] Care Team Providers Care Brothel Keeper Name Role Phone Bar Huynh Primary Care Provider Maynor Underwood Unavailable [phone] Alejandra Farrell Unavailable [phone] Allergies Allergen (clinical drug ingredient) Drug/Non Drug Allergy documented on EMR Reaction Allergy Type Onset Date Status morphine MS Contin edema Drug Allergy Active naproxen Naproxen photosensitive dermatitis Drug Allergy Active methadone Methadone urinary retention Drug Allergy Active Results Component Value Reference Range Notes CT scan : pelvis with attn. to pubic ramus, without contrast Reviewed date:10/03/2024 01:47:56 PM Interpretation:Abnormal Performing Lab: Notes/Report: Abnormal X ray : Hip, left Reviewed date:09/09/2024 10:54:31 AM Interpretation:Abnormal Performing Lab: Notes/Report: Abnormal X ray : Pelvis Reviewed date:12/21/2024 06:14:57 PM Interpretation: Performing Lab: Notes/Report: COMPREHENSIVE (CMP) Reviewed date:12/28/2024 03:15:06 PM Interpretation: Performing Lab: Notes/Report: Hemoccult Reviewed date:01/02/2025 08:52:43 AM Interpretation:Negative Performing Lab: Notes/Report: Negative Reason For Referral Reason Left Hip Fracture Diagnosis 1 Closed nondisplaced fracture of pelvis with routine healing, unspecified part of pelvis, subsequent encounter (S32.9XXD) Referral Organization [facility] Referring Provider First Name Bar Cifuentes Referring Provider Last Name Amina Referring Provider Speciality Family Pra ctice Referred Provider Devan Alberto Referred Provider Specialty Orthopedic S urgery General Notes Estefania Slaughter 09/27/19 9:50:25 AM > sent to Desiree to schedule w/ Ana Kwan Brynn 09/27/2024 10:00:40 AM > patient has appt 09/27/2024 at 11:00am Referral Priority Urgent Medications Medication SIG (Take, Route, Frequency, Duration) Notes Start Date End Date Status Valium 10 MG 1 tab(s) orally At B ed Time; Duration: 30 days 05/29/2025 Active oxyCODONE HCl 30 MG 1 tab(s) 3 times a d ay and 1/2 tab qpm orally 05/29/2025 Active Nabumetone 500 MG 1 tablet Orally Twic e a day; Duration: 30 days 04/20/2025 Active Senokot 8.6 MG 1 tab Orally Once a day Active Lidoderm 5 % 1 patch remove after 12 hours Externally Once a day 04/20/2025 Active traMADol HCl 50 MG 1 tablet as needed Orally every 8 hrs prn Not-Takin g Cyanocobalamin 1000 MCG 1 tablet Orally Once [...] needed Orally every 6 hrs prn Active Immunizations Vaccine Route Administration Date Status Comme nts COVID 19 Moderna Unknown 10/04/2021 Administered COVID 19 Pfizer Unknown 04/01/2021 Administered COVID 19 Pfizer Unknown 04/22/2021 Administered Fluzone High Dose (65yr and older) Unknown 05/29/2022 Administered Fluzone High Dose (65yr and older) Unknown 05/27/2023 Administered Prevnar (PCV13) IM Intramuscular 09/17/2021 Administered P t tolerated well xFluzone High Dose-private (65yr&older) Unknown 04/22/2024 Administered Social History Tobacco Use: Social History Observation Description Date Details (start date - stop date) Former Smoker NA - NA CURRENT TOBACCO USE: Question Answer Notes Are you a: former smoker Quit 10/2023 Problems Problem Type SNOMED Code ICD Code Onset Dates Problem Status W/U Status Risk Notes Problem Gastroesophageal reflux disease (646244626) GERD (gastroesophage al reflux disease) (K21.9) Active confirmed Problem Insomnia (688571161) Insomnia (G47.00) Active confirmed Problem COPD - Chronic obstructive pulmonary disease (57824895) COPD (chronic obstructive pulmonary disease) (J44.9) Active confirmed Problem Body mass index 30+ - obesity (722977981) BMI 30.0-30.9,adult (Z68.30) Active confirmed Problem Chronic pain syndrome (280163314) Chronic pain syndrome (G89.4) Active confirmed Problem Tobacco dependence syndrome (66168955) Tobacco abuse disorder (Z72.0) Active confirmed Problem Lumbosacral spondylosis without myelopathy (32295257) Degenerative joint disease (DJD) of lumbar spine (M47.816) Active confirmed Problem Former smoker (3433153) Former smoker (Z87.891) Active confirmed Problem Chronic anemia (259049181) Chronic anemia (D64.9) Active confirmed Problem Neurogenic claudication (692169209) Spinal stenosis of lumbar region with neurogenic claudication (M48.062) Active confirmed Problem S/P total left hip arthroplasty (Z96.642) Active confirmed Vital Signs Heart Rate 120 /min 04/20/2025 Respiratory Rate 17 /min 01/31/2025 Blood pressure diastolic 80 mm Hg 04/20/2025 Height 63.50 in 04/20/2025 Blood pressure systolic 120 mm Hg 04/20/2025 Weight 165 lbs 04/20/2025 BMI 28.77 kg/m2 04/20/2025 Encounters Encounter Location Date Provider Diagnosis [facility] [address] [facility] [address] [place] [id number] 07/05/2024 R Esau Huynh Degenerative joint disease (DJD) of lumbar spine M47.816 ; Chronic pain syndrome G89.4 ; COPD (chronic obstructive pulmonary disease) J44.9 ; Former smoker Z87.891 and Spinal stenosis of lumbar region with neurogenic claudication M48.062 [facility] [address] [place] [id number] 09/08/2024 R Esau Huynh Hip pain, left M25.5 52 ; Fall W19.XXXA and Leg edema R60.0 [facility] [address] [place] [id number] 11/01/2024 Bar Bynumfleet Adult general medica l examination Z00.00 ; Fracture of hip S72.009A ; Chronic pain syndrome G89.4 ; Spinal stenosis of lumbar region with neurogenic claudication M48.062 ; Degenerative joint disease (DJD) of lumbar spine M47.816 ; Former smoker Z87.891 and BMI 30.0-30.9,adult Z68.30 [address] [place] [id number] 12/20/2024 Alejandra Farrell Degenerative joint disease (DJD) of lumbar spine M47.816 ; Insomnia G47.00 ; Chronic pain syndrome G89.4 ; Spinal stenosis of lumbar region with neurogenic claudication M48.062 ; Tobacco abuse disorder Z72.0 ; Former smoker Z87.891 ; GERD (gastroesophageal reflux disease) K21.9 ; Aftercare following explantation of hip joint prosthesis Z47.32 ; Closed fracture of left wrist with routine healing, subsequent encounter S62.102D and Chronic anemia D64.[address] [place] [id number] 12/27/2024 Alejandra Farrell Degenerative joint disease (DJD) [...] subsequent encounter S62.102D and Chronic anemia D64.[address] [place] [id number] 01/31/2025 Alejandra Farrell Degenerative joint disease (DJD) [...] and COPD (chronic obstructive pulmonary disease) J44.9 [facility] [address] [facility] [address] [place] [id number] 02/02/2025 R Esau Amina Degenerative joint disease (DJD) of lumbar spine M47.816 ; Chronic pain syndrome G89.4 ; Insomnia G47.00 ; Spinal stenosis of lumbar region with neurogenic claudication M48.062 ; GERD (gastroesophageal reflux disease) K21.9 ; Closed fracture of left wrist with routine healing, subsequent encounter S62.102D ; Chronic anemia D64.9 ; BMI 30.0-30.9,adult Z68.30 and COPD (chronic obstructive pulmonary disease) J44.9 [facility] [address] [id number] 02/21/2025 R Esau Amina Closed fracture of left wrist with routine [...] pulmonary disease) J44.9 and BMI 29.0-29.9,adult Z68.29 [facility] [address] [id number] 04/20/2025 R Esau Amina Closed fracture of left wrist with routine [...] pulmonary disease) J44.9 and BMI 28.0-28.9,adult Z68.28 [facility] [address] [place], [place] [id number] 08/04/2024 R Esau Amina Chronic pain syndrom e G89.4 [facility] [address] [place], [place] [id number] 09/01/2024 R Esau Amina Chronic pain syndrom e G89.4 [facility] [address] [place], [place] [id number] 09/08/2024 R Esau Amina [facility] [address] [place], [place] [id number] 09/12/2024 R Esau Amina Closed nondisplaced fracture of pelvis with routine healing, unspecified part of pelvis, subsequent encounter S32.9XXD [facility] [address] [place], [place] [id number] 09/19/2024 R Esau Amina Hip pain, left M25.5 52 [facility] [address] [place], [place] [id number] 09/27/2024 R Esau Amina [facility] [address] [place], [place] [id number] 10/03/2024 R Esau Amina Chronic pain syndrom e G89.4 and Spinal stenosis of lumbar region with neurogenic claudication M48.062 [facility] [address] [place], [place] [id number] 10/07/2024 R Esau Amina Closed left hip fracture S72.002A [facility] [address] [place], [place] [id number] 12/01/2024 R Esau Amina Chronic pain syndrom e G89.4 [facility] [address] [place], [place] [id number] 12/13/2024 R Esau Amina [facility] [address] [place], [place] [id number] 12/20/2024 R Esau Amina Chronic pain syndrom e G89.4 and Spinal stenosis of lumbar region with neurogenic claudication M48.062 [facility] [address] [place], [place] [id number] 12/21/2024 Alejandra Ogdenond [facility] [address] [place], [place] [id number] 12/30/2024 Alejandra Ogdenond [facility] [address] [place], [place] [id number] 01/12/2025 Maynor Alpine Chronic pain syndrom e G89.4 and Insomnia G47.00 [facility] [address] [place], [place] [id number] 02/09/2025 R Esau Amina Chronic pain syndrom e G89.4 and Insomnia G47.00 [facility] [address] [place], [place] [id number] 02/09/2025 R Esau Amina [facility] [address] [place], [place] [id number] 02/13/2025 R Esau Amina [facility] [address] [place], [place] [id number] 02/20/2025 R Esau Amina [facility] [address] [place], [place] [id number] 03/07/2025 R Esau Amina [facility] [address] [place], [place] [id number] 03/29/2025 R Esau Amina Chronic pain syndrom e G89.4 [facility] [address] [place], [place] [id number] 04/27/2025 R Esau Amina Chronic pain syndrom e G89.4 [facility] [address] [place], [place] [id number] 05/29/2025 Maynor Alpine Chronic pain syndrom e G89.4 and Insomnia G47.00 Assessments Encounter Date Diagnosis (ICD Code) Assessment Notes Treatment Notes Treatment Clinical Notes Section Notes 07/05/2024 Chronic pain syndrome (ICD-10 - G89.4) 07/05/2024 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) 08/04/2024 Chronic pain syndrome (ICD-10 - G89.4) 09/01/2024 Chronic pain syndrome (ICD-10 - G89.4) 09/08/2024 Fall (ICD-10 - W19.XXXA) 09/08/2024 Hip pain, left (ICD-10 - M25.552) X-rays show old, chronic bilateral pelvic fractures but nothing acute. She will take the medication as prescribed and if no improvement over the next 3 to 4 days, consider CT scan to rule out occult fracture. May also need referral to physical therapy. 09/12/2024 Closed nondisplaced fracture of pelvis with routine healing, unspecified part of pelvis, subsequent encounter (ICD-10 - S32.9XXD) 09/19/2024 Hip pain, left (ICD-10 - M25.552) 10/03/2024 Chronic pain syndrome (ICD-10 - G89.4) 10/07/2024 Closed left hip fracture (ICD-10 - S72.002A) 11/01/2024 Fracture of hip (ICD-10 - S72.009A) Continue follow-up with orthopedics for planned surgery 12/01/2024 Chronic pain syndrome (ICD-10 - G89.4) 12/20/2024 Chronic pain syndrome (ICD-10 - G89.4) 11/01/2024 Adult general medical examination (ICD-10 - Z00.00) Patient instructed to return to office Annually for Annual Wellness Visits to include annual screenings of Pain assessment, Functional Ability assessment, Cognitive Ability assessment, Fall Risk assessment, Depression screening and Bladder control screening. 12/20/2024 Insomnia (ICD-10 - G47.00) 12/20/2024 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) 12/27/2024 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) 01/12/2025 Chronic pain syndrome (ICD-10 - G89.4) 01/31/2025 Aftercare following explantation of hip joint prosthesis (ICD-10 - Z47.32) continue with PT with plans to go home 01/31/2025 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) 02/02/2025 Chronic pain syndrome (ICD-10 - G89.4) 02/02/2025 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) 02/09/2025 Chronic pain syndrome (ICD-10 - G89.4) 02/21/2025 Closed fracture of left wrist with routine healing, subsequent encounter (ICD-10 - S62.102D) 02/21/2025 S/P total left hip arthroplasty (ICD-10 - Z96.642) 03/29/2025 Chronic pain syndrome (ICD-10 - G89.4) 04/20/2025 Closed fracture of left wrist with routine healing, subsequent encounter (ICD-10 - S62.102D) 04/27/2025 Chronic pain syndrome (ICD-10 - G89.4) 05/29/2025 Chronic pain syndrome (ICD-10 - G89.4) 05/29/2025 Insomnia (ICD-10 - G47.00) 04/20/2025 S/P total left hip arthroplasty (ICD-10 - Z96.642) Continue follow-up with [facility] 04/20/2025 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) 02/21/2025 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) 02/09/2025 Insomnia (ICD-10 - G47.00) 02/02/2025 Insomnia (ICD-10 - G47.00) 01/31/2025 Chronic pain syndrome (ICD-10 - G89.4) 01/12/2025 Insomnia (ICD-10 - G47.00) 12/27/2024 Insomnia (ICD-10 - G47.00) 12/20/2024 Chronic pain syndrome (ICD-10 - G89.4) 12/20/2024 Spinal stenosis of lumbar region with neurogenic claudication (ICD-10 - M48.062) 11/01/2024 Chronic pain syndrome (ICD-10 - G89.4) 10/03/2024 Spinal stenosis of lumbar region with neurogenic claudication (ICD-10 - M48.062) 09/08/2024 Leg edema (ICD-10 - R60.0) 07/05/2024 COPD (chronic obstructive pulmonary disease) (ICD-10 - J44.9) 07/05/2024 Former smoker (ICD-10 - Z87.891) 11/01/2024 Spinal stenosis of lumbar region with neurogenic claudication (ICD-10 - M48.062) 12/27/2024 Chronic pain syndrome (ICD-10 - G89.4) 12/20/2024 Spinal stenosis of lumbar region with neurogenic claudication (ICD-10 - M48.062) 01/31/2025 Insomnia (ICD-10 - G47.00) 02/02/2025 Spinal stenosis of lumbar region with neurogenic claudication (ICD-10 - M48.062) 02/21/2025 Chronic pain syndrome (ICD-10 - G89.4) 04/20/2025 Chronic pain syndrome (ICD-10 - G89.4) 04/20/2025 Insomnia (ICD-10 - G47.00) 02/21/2025 Insomnia (ICD-10 - G47.00) 02/02/2025 GERD (gastroesophageal reflux disease) (ICD-10 - K21.9) 01/31/2025 Spinal stenosis of lumbar region with neurogenic claudication (ICD-10 - M48.062) 12/27/2024 Spinal stenosis of lumbar region with neurogenic claudication (ICD-10 - M48.062) 12/20/2024 Tobacco abuse disorder (ICD-10 - Z72.0) 07/05/2024 Spinal stenosis of lumbar region with neurogenic claudication (ICD-10 - M48.062) 11/01/2024 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) 11/01/2024 Former smoker (ICD-10 - Z87.891) 12/20/2024 Former smoker (ICD-10 - Z87.891) 12/27/2024 Former smoker (ICD-10 - Z87.891) 01/31/2025 GERD (gastroesophageal reflux disease) (ICD-10 - K21.9) 02/02/2025 Closed fracture of left wrist with routine healing, subsequent encounter (ICD-10 - S62.102D) 02/21/2025 Spinal stenosis of lumbar region with neurogenic claudication (ICD-10 - M48.062) 04/20/2025 Spinal stenosis of lumbar region with neurogenic claudication (ICD-10 - M48.062) 02/21/2025 GERD (gastroesophageal reflux disease) (ICD-10 - K21.9) 04/20/2025 GERD (gastroesophageal reflux disease) (ICD-10 - K21.9) 12/27/2024 GERD (gastroesophageal reflux disease) (ICD-10 - K21.9) 01/31/2025 Closed fracture of left wrist with routine healing, subsequent encounter (ICD-10 - S62.102D) 02/02/2025 Chronic anemia (ICD-10 - D64.9) 11/01/2024 BMI 30.0-30.9,adult (ICD-10 - Z68.30) 12/20/2024 GERD (gastroesophageal reflux disease) (ICD-10 - K21.9) 01/31/2025 Chronic anemia (ICD-10 - D64.9) 12/27/2024 Aftercare following explantation of hip joint prosthesis (ICD-10 - Z47.32) continue with PT with plans to go home 12/20/2024 Aftercare following explantation of hip joint prosthesis (ICD-10 - Z47.32) continue with PT with plans to go home 02/21/2025 Chronic anemia (ICD-10 - D64.9) 02/02/2025 BMI 30.0-30.9,adult (ICD-10 - Z68.30) 04/20/2025 Chronic anemia (ICD-10 - D64.9) 04/20/2025 COPD (chronic obstructive pulmonary disease) (ICD-10 - J44.9) 02/21/2025 COPD (chronic obstructive pulmonary disease) (ICD-10 - J44.9) 12/20/2024 Closed fracture of left wrist with routine healing, subsequent encounter (ICD-10 - S62.102D) 12/27/2024 Closed fracture of left wrist with routine healing, subsequent encounter (ICD-10 - S62.102D) 01/31/2025 COPD (chronic obstructive pulmonary disease) (ICD-10 - J44.9) 02/02/2025 COPD (chronic obstructive pulmonary disease) (ICD-10 - J44.9) 12/27/2024 Chronic anemia (ICD-10 - D64.9) Pt states she received 4 U PRBC while at [facility]; she states she had multiple blood tests [...] and FA; still need stool for OB 12/20/2024 Chronic anemia (ICD-10 - D64.9) did receive blood when at ; will need to repeat labs and do anemia studies 02/21/2025 BMI 29.0-29.9,adult (ICD-10 - Z68.29) 04/20/2025 BMI 28.0-28.9,adult (ICD-10 - Z68.28) 12/20/2024 Other will do labs to include CBC,Iron, Folate, retic count, vit B12, stool for OB, CMP 01/31/2025 Other pt has greatly improved and is looking forward to going home soon 02/21/2025 Other Discharge summary with available lab/diagnostic imaging results obtained and reviewed. Discharge medication list reconciled. Appropriate counseling provided. Moderate Complexity Plan Of Treatment Next Appt Details Provider Name:Bar Seay marcia, 07/25/2025 01:30:00 PM, [address] [facility] [address] [facility], [address], [place], [place], [id number], Insurance Providers Payer Name Payer Address Payer Phone Subscriber Number Group Number Insured Name Patient Relationship to Insured Coverage Start Date Coverage End Date MEDICARE PART B [address] [address] [place]et[place] [id number] [phone] [id number] CLIVE MARTIN Self - patient is the insured [employer] [address] [place] [address] [id number] CLIVE MARTIN Self - patient is the insured Medications Administered Medication Instructions Date of Administration Dosage Notes Depo- Medrol 40 mg/ml 09/04/2020 1.5 mL Medical (General) History Medical History History ICD Code DDD L-spine - MRI 05/2002 Thoracic kyphosis Tobacco addiction-quit smoking 2023 Declines health screenings - 08/2021; 08/25 023; 12/2023 Right wrist fx - 01/2022 anemia lumbar stenosis GERD Anxiety Insomnia COPD falls resulting in fractures severe osteoporosis Surgical History Surgery Date(Month/Year) Teeth removed 09/2018 ORIF LEFT RADIUS; LEFT TOTAL HIP ARTHROP LASTY - Ortho 12/12/2024 Hospitalization History Reason Date(Month/Year) for scheduled ORIF OF LEF T WRIST AND TOTAL LEFT THR; anemia; COPD; severe osteoporosis 12/12-12/18/2024
--- OUTSIDE RECORDS SUMMARY | 2025-06-06 15:54 | XMS_ITS | Encounter Summary ---
Author Organization [facility] Address [address] [place] [address] Care Team Providers Care Cyber Software Engineer Name Role Phone Jarocho Huynh MD Primary Care Provider [phone] Encounter Details Date Type Department Care Team ([facility] Contact Info) Description 06/05/2025 Telephone [facility] [address], [address] [place] [address] Jose Gilmore Social History Tobacco [...] were you homeless or living in a snf (including now)? No 12/13/2024 Utilities Answer Date Recorded In the past 12 months has th e [employer], gas, oil, or water [employer] threatened to shut off services in your home? No 12/13/2024 Comments No Sex and Gender Information Value Date Recorded Sex Assigned at Not on file Legal Sex Female 3:20 PM EST Gender Identity Not on file Sexual Orientation Not on file documented as of this encounter Miscellaneous Notes * Telephone Encounter - Jose Gilmore - 06/05/2025 1:44 PM EDT Called pt regarding labs, pt did not answer lvm. documented in this encounter Plan of Treatment Upcoming Encounters Date Type Department Care Team (Late st Contact Info) Description 06/22/2025 2:00 PM EDT Office Visit Medical Office [facility] [address], [address] [place] [address] Juan Dickson MD [address] [place] [address] documented as of this encounter Visit Diagnoses Not on filedocumented in this encounter Additional Health Concerns Assessment Noted Time A fall risk assessment has been complete d for the patient 02/23/2025 3:46 PM EDT A Body Mass Index follow-up plan has been documented for the patient 02/23/2025 8:00 PM EDT documented as of this encounter Care Teams Cyber Software Engineer Relationship Specialty Start Date End Date Jarocho Huynh MD [address] [place] [address] PCP - General 10/27/24 documented as of this encounter
--- OUTSIDE RECORDS SUMMARY | 2025-06-06 15:54 | XMS_ITS | Clinical Summary ---
Author Organization [facility] Address [address] [place] [address] Care Team Providers Care Textile Technologist Name Role Phone Jarocho Huynh MD Primary Care Provider +1- [phone] Allergies Active Allergy Reactions Criticality Noted Date Comments Morphine Hives Medium 10/27/2024 Naproxen Hives Medium 10/27/2024 Medications diazePAM (Valium) 10 MG tablet Take 1 tablet by mouth at night as needed. 10/03/2024 Active oxyCODONE (Roxicodone) 30 MG immediate release tablet Take 1 tablet by mouth 3 (three) times a day. 10/03/2024 Active Multiple Vitamin (MULTIVITAMIN PO) Take 1 tablet by mouth daily. Active diphenhydrAMINE (Benadryl) 25 MG tablet Take 1 tablet by mouth as needed for itching. Active senna-docusate sodium (Senokot-S) 8.6-50 MG tablet Take 1 tablet by mouth daily. 14 tablet 12/18/2024 Active omeprazole OTC (PriLOSEC OTC) 20 MG EC tablet Take 1 tablet by mouth daily. Do not crush, chew, or split. 42 tablet 12/18/2024 Active Iron, Ferrous Sulfate, 325 (65 Fe) MG tablet 1 tablet Orally Three times a Week 12/30/2024 Active folic acid (Folvite) 1 MG tablet Take 1 tablet by mouth Daily. 12/30/2024 Active senna (Senokot) 8.6 MG tablet 1 (one) time each day at the same time. Active Nutritional Supplements (Balanced Nutritional Drink) liquid Take 1 Dose by mouth daily. 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 [facility] [address] , [address] [place] [address] Jose Gilmore 04/21/2025 Telephone [facility] [address] , [address] [place] [address] Juan Dickson MD from Last 3 Months Social History Tobacco Use Types Packs/Day Years Used Date Smoking Tobacco: Former Cigarettes 2 52 0 10/23/1971 - 10/23/2023 Smokeless Tobacco: Never Tobacco Cessation:Counseling Given: Not Answered Alcohol Use Standard Drinks/Week Comments Never 0 [...] any time in the past 12 m [facility], were you homeless or living in a long term (including now)? No 12/13/2024 Utilities Answer Date Recorded In the past 12 months has th e electric, gas, oil, or water company threatened to shut off services in your home? No 12/13/2024 Comments No Sex and Gender Information Value Date Recorded Sex Assigned at Not on file Legal Sex Female 3:20 PM EST Gender Identity Not on file Sexual Orientation Not on file Last Filed Vital Signs Vital Sign Reading Time Taken Comments Blood Pressure 129/85 02/06/2025 1:41 PM EDT Pulse 95 02/06/2025 1:41 PM EDT Temperature 36.8 C (98.2 F) 01/26/2025 2:53 PM EDT Respiratory Rate 18 01/24/2025 12:05 PM EDT Oxygen Saturation 95% 02/06/2025 1:41 PM EDT Inhaled Oxygen Concentration - - Weight 74.4 kg (164 lb) 02/23/2025 3:38 PM EDT Height 157.5 cm (5' 2 ) 02/23/2025 3:38 PM EDT Body Mass Index 30 02/23/2025 3:38 PM EDT Plan of Treatment Upcoming Encounters Date Type Department Care Team (Late st Contact Info) Description 06/22/2025 2:00 PM EDT Office Visit Medical Office Building [facility] [address], [address] [place] [address] Juan Dickson MD [address] [facility] [address] [place] [address] Health Maintenance Due Date Last Done Comments [facility]-Hepatitis C Screening 1955 [facility]-Medicare Annual Wellness (AWV) 1955 [facility]-Infant/Child/Adol SDOH Screenings 1955 [facility]-DTaP,Tdap,and Td Vaccines (1 - Tdap) 1974 CT Colonography 2000 Colonoscopy 2000 FIT-DNA 2000 FIT 2000 FOBT 2000 Sigmoidoscopy 2000 [facility]-Colorectal Cancer Screening 2000 [facility]-Breast Cancer Screening 2005 [facility]-Lung Cancer Screening 2005 [facility]-Zoster Vaccines (1 of 2) 2005 [facility]-RSV Vaccine: 60+ Years or (1 - Risk 60-74 years 1-dose series) 2015 [facility]-Pneumococcal Vaccine: 50+ Years (2 of 2 - PPSV23, PCV20, or PCV21) 11/12/2021 09/17/2021 TTA-HFELT-04 Vaccine ( - season) 2025 04/22/2024, 06/11/2022, 10/04/2021, Additional history exists [facility]-Influenza Vaccine (#1) 04/24/202504/22, 05/27/2023, 05/29/2022 [facility]- SDOH Screenings 06/14/2025 [facility]-Adult SDOH Screenings 06/14/2025 12/13/2024 [facility]-Bone Density Scan 02/16/2026 02/16/2025 [facility]-Depression Screening 02/23/2026 02/23/2025 [facility]-Obesity Intervention Completed 025, 02/06/2025, 01/26/2025, Additional history exists HPV Vaccines Aged Out No longer eligi ble based on patient's age to complete this topic [facility]-HIB Vaccines Aged Out No longer e ligible based on patient's age to complete this topic [facility]-Hepatitis A Vaccines Aged Out No longer eligible based on patient's age to complete this topic [facility]-IPV Vaccines Aged Out No longer e ligible based on patient's age to complete this topic [facility]-Rotavirus Vaccines Aged Out No lo nger eligible based on patient's age to complete this topic Medical Devices Implanted Type Area Pie Filler Device Identifier Shelf Expiration Date Model / Serial / Lot Cable Ss With Crimp - [id number] Implanted:Qty: 1 on 12/12/2024 by Juan Dickson MD at [facility] Cable Left: Hip [employer]-[id number] 03/01/2029 [id number] / / [id number] Shell Modular Redapt 54mm - [id number] Implanted:Qty: 1 on 12/12/2024 by Juan Dickson MD at [facility] Hip Left: Hip [employer]-[id number] 05/15/2034 [id number] / / [id number] Chg Head Oxinium Fem 08/06 36 - [id number] Implanted:Qty: 1 on 12/12/2024 by Juan Dickson MD at [facility] Hip Left: Hip [employer]-[id number] 07/27/2034 [id number] / / [id number] Chg Screw Ref Spher Head 40mm - [id number] Implanted:Qty: 1 on 12/12/2024 by Juan Dickson MD at [facility] Screw Left: Hip [employer]-[id number] 06/07/2034 [id number] / / [id number] Chg Screw Redapt Lock 25mm - [id number] Implanted:Qty: 1 on 12/12/2024 by Juan Dickson MD at [facility] Screw Left: Hip [employer]-[id number] 10/26/2033 [id number] / / [id number] Chg Screw Redapt Lock 20mm - [id number] Implanted:Qty: 2 on 12/12/2024 by Juan Dickson MD at [facility] Screw Left: Hip [employer]-[id number] 04/12/2034 [id number] / / [id number] Chg Screw Redapt Lock 20mm - [id number] Implanted:Qty: 1 on 12/12/2024 by Juan Dickson MD at [facility] Screw Left: Hip [employer]-[id number] 03/08/2034 [id number] / / [id number] Chg Liner R3 20 Deg Xlpe Acet - [id number] Implanted:Qty: 1 on 12/12/2024 by Juan Dickson MD at [facility] Screw Left: Hip [employer]-[id number] 03/26/2034 [id number] / / [id number] Polarstem Cementless Tiha 7 - [id number] Implanted:Qty: 1 on 12/12/2024 by Juan Dickson MD at [facility] Stem Left: Hip [employer]-[id number] 02/23/2031 [id number] / / [id number] Geminus Volar Dist Rad Plate Std 4h Lt - [id number] Implanted:Qty: 1 on 12/16/2024 by Carlos Dutta MD at [facility] Left: Wrist [employer]-[id number] / / N/A Screw Peg Threaded Locking 2.2vxa50qx - [id number] Implanted:Qty: 1 on 12/16/2024 by Carlos Dutta MD at [facility] Left: Wrist [employer]-[id number] S / / N/A Screw Peg Threaded Locking 2.8ajl47vb - [id number] Implanted:Qty: 1 on 12/16/2024 by Carlos Dutta MD at [facility] Left: Wrist [employer]-[id number] S / / N/A Screw Peg Threaded Locking 2.4kzm15ri - [id number] Implanted:Qty: 1 on 12/16/2024 by Carlos Dutta MD at [facility] Left: Wrist [employer]-[id number] S / / N/A Screw Peg Threaded Locking 2.1sof45kf - [id number] Implanted:Qty: 1 on 12/16/2024 by Carlos Dutta MD at [facility] Left: Wrist [employer]-[id number] S / / N/A Screw Peg Threaded Locking 2.6anm71sd - [id number] Implanted:Qty: 2 on 12/16/2024 by Carlos Dutta MD at [facility] Left: Wrist [employer]-[id number] S / / N/A Screw 3.5mm Geminus Ti Cortical Non Lock 14mm - [id number] Implanted:Qty: 1 on 12/16/2024 by Carlos Dutta MD at [facility] Left: Wrist [employer]-[id number] S / / N/A Screw 3.5mm Geminus Ti Cortical Non Lock 12mm - [id number] Implanted:Qty: 1 on 12/16/2024 by Carlos Dutta MD at [facility] Left: Wrist [employer]-[id number] S / / N/A Screw 3.5mm Geminus Ti Cortical Lock 12mm - [id number] Implanted:Qty: 1 on 12/16/2024 by Carlos Dutta MD at [facility] Left: Wrist [employer]-[id number] S / / N/A Explanted Type Area Pie Filler Device Identifier Shelf Expiration Date Model / Serial / Lot Chg Screw Ref Spher Head 25mm - [id number] Explanted:Qty: 1 on 12/12/2024 by Juan Dickson MD at [facility] Screw Left: Hip [employer]-[id number] 11/27/2033 [id number] / / [id number] Screw Peg Threaded Non Lock 2.5elt40ox - [id number] Explanted:Qty: 1 on 12/16/2024 at [facility] Left: Wrist [employer]-[id number] S / / N/A Procedures Procedure Name Priority Date/Time Associated Diagnosis Comments DEXA BONE DENSITY AXIAL SKELETON W VFA Routine 02/16/2025 2:58 PM EDT Age-related osteoporosis without current pathological fracture from Last 3 Months or Most Recently Relevant to Health Maintenance Results * Dexa Bone Density Axial Skeleton W VFA (02/16/2025 2:58 PM EDT) Anatomical Region Laterality Modality Body Radio Fluoroscop y Narrative 02/19/2025 2:34 PM EDT [facility] [address] [place] [address] DXA Bone Densitometry Report: [02/16/2025] BMD test performed using the Folkstr DXA System (analysis version: 14.10) manufactured by [employer]. REFERRING PROVIDER: Dr. Derick Nuno APRN CLINICAL INFORMATION: osteoporosis PATIENT NAME: Doreen Eaton PATIENT AGE: 69 y.o. LEGAL SEX: female RADIOGRAPHIC VIEWS: Sites scanned: AP Spine, HIP Right , RADIUS Right , VFA, and TBS COMPARISON STUDY: DXA Axial Prior studies are not available for comparison, DXA Extremity Prior studies are not available for comparison, VFA Prior studies are not available for comparison, and TBS Prior studies are not available for comparison FINDINGS: Based on WHO criteria (post-menopausal female) the diagnosis is Osteoporosis The lowest T- score is -3.4 in the R total hip The presence of arthritic or degenerative joint changes in the spine could artefactually increase measured BMD. There is discontinuity in the right distal ulna which could be consistent with history of prior fracture; additional imaging should be performed if indicated TBS: The TBS L1-L4 of 1.300 indicates partially degraded microarchitecture VFA: LVA Morphometry performed on T8-L4 vertebrae: There is no e/o vertebral compression deformity on the VFA study There is loss of normal lumbar lordosis; spondylotic changes with narrowing of disc spaces is present in the lumbar spine TREATMENT RECOMMENDATIONS: Measured bone density crosses threshold for treatment of osteoporosis Specific anti-osteoporotic therapy remains indicated given high risk of future fracture Work up for secondary osteoporosis and metabolic bone disease could be considered based on clinical indications. Suggest general measures to optimize calcium and vitamin D status, fall prevention measures and reduce fracture risk. Consider repeating this study in 1 year(s) or as clinically indicated to assess bone density change or response to treatment (should be performed on the same DXA scanner to allow for direct comparison and calculation of change in BMD). Consider imaging of the right wrist if clinically indicated Derick Nuno SOUND RECORDIST IMG DXA PROCEDURES Final Re sult from Last 3 Months or Most Recently Relevant to Health Maintenance Insurance MEDICARE [facility] Advance Directives * Full Code (Latest Code Status on File) Date Activated Date Inactivated Comments 12/16/2024 4:45 PM 12/18/2024 4:40 PM Question Answer Comments I have reviewed the capacity from the link above and, if needed, have updated to appropriate status: Yes * Full Code Date Activated Date Inactivated Comments 12/12/2024 4:18 PM 12/16/2024 4:45 PM Question Answer Comments I have reviewed the capacity from the link above and, if needed, have updated to appropriate status: Yes Care Teams Textile Technologist Relationship Specialty Start Date End Date Jarocho Huynh MD [address] [place] [address] [facility] - General 10/27/24
[2025-06-06 18:28] LABS: Albumin Level 3.9 g/dl (3.5-5.0); Chloride 100 mmol/L (98-107); Potassium 4.1 mmoL/L (3.5-5.1); Sodium 139 mmol/L (136-145)
[2025-06-06 18:31] LABS: Anion Gap 14.1 mEq/L (5-15); Blood Urea Nitrogen 15 mg/dl (7-17); Calcium 8.9 mg/dl (8.4-10.2); Carbon Dioxide 29 mmol/L (22.0-30.0); Creatinine,Serum 0.60 mg/dl (0.52-1.04); Estimated Glomerular Filt Rate 99 ml/min (>60); GFR (African American) 120 ML/MIN (>60); Glucose 93 mg/dl (74-100); Phosphorous 4.0 mg/dl (2.5-4.5)
[2025-06-06 20:55] LABS: 25-OH Vitamin D, Total 29.7 ng/mL (30-100)
== END 2025-06-06 23:59 | disposition home or self-care (01) ==
LOC: LAB 15:52
PROVIDERS: PCP Family Medicine; Visit Provider Nurse Practitioner Acute Care
DX: M81.0 Age-related osteoporosis without current pathological fracture (principal)
CPT/HCPCS: 36415; 80069; 82306; 82523; 84080

== ENCOUNTER 2025-07-24 12:53 | Outpatient (CLI) | payer MEDICARE, BC, SELFPAY ==
--- NOTE | 2025-07-24 12:56 | MR_ITS ---
FINAL REPORT TECHNIQUE: Multiplanar and multisequence imaging of the shoulder was obtained without contrast. CLINICAL HISTORY: L SHOULDER (L HIP AND WRIST HARDWARE) LROM COMPARISON: None FINDINGS: Bones and joints: There is no acute fracture, edema, or pathologic marrow replacement. Acromioclavicular joint degenerative disease is present and there is osteophytosis which narrows the supraspinatus outlet. There is also degenerative change of the glenohumeral joint, with subchondral cysts near the greater trochanter. Rotator cuff: The supraspinatus tendon is intact. There is a partial articular sided tear of the infraspinatus tendon involving less than 50% of the thickness of that tendon. No full-thickness rotator cuff tear is identified. No subscapularis tendon tear. There is no fatty atrophy of the rotator cuff muscles. Labrum: The biceps labral complex is intact. Degenerative labral changes are present, without convincing evidence of a tear. The inferior glenohumeral ligament is intact. The biceps tendon is intact. No biceps tendon tear is identified. There is fluid in the biceps tendon sheath, greater than expected, that likely represents tenosynovitis. Other: A small joint effusion is present, along with a small amount of fluid in the subdeltoid bursa. IMPRESSION: 1. Degenerative joint disease as described. 2. Partial articular sided tear of the infraspinatus tendon involving less than 50% of the thickness of that tendon. 3. Fluid is present in the bicipital tendon sheath, greater than expected, that likely represents tenosynovitis. Reviewed, Interpreted and Dictated by Yeimi Christine MD Transcribed by Jaquelin Bradley Authenticated and [facility]
--- OUTSIDE RECORDS SUMMARY | 2025-07-24 12:57 | XMS_ITS | Encounter Summary ---
Author Organization [facility] Address [address] [place] [address] Care Team Providers Care Finished Cloth Examiner Name Role Phone Jarocho Huynh MD Primary Care Provider +1- [phone] Encounter Details Date Type Department Care Team ([facility] Contact Info) Description 05/31/2025 Telephone [facility] [address], [address] [place] [address] Jose Gilmore Social History Tobacco [...] the past 12 months has th e [employer], gas, oil, or water company threatened to [...] Called pt regarding labs, fax labs to [facility] today with confirmation. documented in this encounter Plan of Treatment Not on file documented as of this encounter Visit Diagnoses Not on filedocumented in this encounter Additional Health Concerns Assessment Noted Time A fall risk assessment has been complete d for the patient 02/23/2025 3:46 PM EDT A Body Mass Index follow-up plan has been documented for the patient 02/23/2025 8:00 PM EDT documented as of this encounter Care Teams Finished Cloth Examiner Relationship Specialty Start Date End Date Jarocho Huynh MD [address] [place] [address] PCP - General 10/27/24 documented as of this encounter
--- OUTSIDE RECORDS SUMMARY | 2025-07-24 12:57 | XMS_ITS | Encounter Summary ---
Author Organization [facility] Address [address] [place] [address] Care Team Providers Care Ethanol Operations Manager Name Role Phone Jarocho Huynh MD Primary Care Provider +1- [phone] Encounter Details Date Type Department Care Team ([facility] Contact Info) Description 06/05/2025 Telephone [facility] [address] [facility], [address] [place] [address] Jose Gilmore Social History Tobacco [...] were you homeless or living in a senior living (including now)? No 12/13/2024 Utilities Answer Date [...] encounter Miscellaneous Notes * Telephone Encounter - Libertad Stout - 06/06/2025 4:26 PM EDT Status Update Call #1 1st call regarding the status of the initial request. Patient calling advised she got her lab work done today [facility] and would like call back to schedule Best contact number: Other: [phone] Optimal time of day to reach caller: ANYTIME Additional comments/information from caller: None Note: Please do not reply to this message. Follow-up communication and further actions as a result of this message need to be communicated with the patient directly, if the patient is not active onMyChart. If the patient is active on MyChart, they will receive notification of the communication/outcome via [employer]. * Telephone Encounter - Jose Gilmore - [...] documented as of this encounter Care Teams Ethanol Operations Manager Relationship Specialty Start Date End Date Jarocho Huynh MD [address] [place] [address] PCP - General 10/27/24 documented as of this encounter
--- OUTSIDE RECORDS SUMMARY | 2025-07-24 12:57 | XMS_ITS | Encounter Summary ---
Author Organization [facility] Address [address] 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 Mark Alberto DO [address] [place] [address] Phone: tel: fax: Juan Dickson MD [address] [facility] [address] [place] [address] Phone: tel: fax: Referral ID Status Reason Start Date Expiration Date Visits Re quested Visits Authorized [id number] Closed 10/13/2024 04/14/2026 1 1 Encounter Details Date Type Department Care Team (Late st Contact Info) Description 10/13/2024 Community [facility] [address] [place] [address] Mark Alberto DO [address] [place] [address] Closed displaced fracture [...] as of this encounter Plan of Treatment Scheduled Referrals Name Type Priority Associated Diagnoses Order Schedule Ambulatory referral to Orthopaedics Joint Reconstruction Outpatient Referral Routine 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
--- OUTSIDE RECORDS SUMMARY | 2025-07-24 12:58 | XMS_ITS | Clinical Summary ---
Author Organization [facility] Address [address] [place] [address] Care Team Providers Care Resource Coordinator Name Role Phone Jarocho Huynh MD Primary Care Provider [phone]- [phone] Allergies Active Allergy Reactions Criticality Noted Date [...] Type Department Care Team Description 06/05/2025 Telephone [employer] [facility] [address] [place] [address] Jose Gilmore 05/31/2025 [employer] [facility] [address] , [address] [place] [address] Jose Gilmore from Last 3 Months Social History Tobacco [...] time in the past 12 m [facility], were you homeless or living in a group home (including now)? No 12/13/2024 Utilities Answer Date [...] 02/23/2025 3:38 PM EDT Plan of Treatment Health Maintenance Due Date Last Done Comments [facility]-Hepatitis C Screening 1955 [facility]-Medicare Annual Wellness (AWV) 1955 [facility]-Infant/Child/Adol SDOH Screenings 1955 [facility]-DTaP,Tdap,and Td Vaccines (1 - Tdap) 1974 CT Colonography 2000 Colonoscopy 2000 FIT-DNA 2000 FIT 2000 FOBT 2000 Sigmoidoscopy 2000 [facility]-Colorectal Cancer Screening 2000 Lung Cancer Screening Shared Decision Making 2005 [facility]-Breast Cancer Screening 2005 [facility]-Lung Cancer Screening 2005 [facility]-Zoster Vaccines (1 of 2) 2005 [facility]-RSV Vaccine: 60+ Years or (1 - Risk 60-74 years 1-dose series) 2015 [facility]-Pneumococcal Vaccine: 50+ Years (2 of 2 - PPSV23, PCV20, or PCV21) 11/12/2021 09/17/2021 [id number] Vaccine ( - season) 2025 04/22/2024, 06/11/2022, [...] this topic Medical Devices Implanted Type Area Remarketing Manager Device Identifier Shelf Expiration Date Model / Serial / Lot Cable Ss With Crimp - [id number] Implanted:Qty: 1 on 12/12/2024 by Juan Dickson MD at [facility] Cable Left: Hip [employer]-[id number] 03/01/2029 [id number] / / [id number] Shell Modular Redapt 54mm - [id number] Implanted:Qty: 1 on 12/12/2024 by Juan Dickson MD at [facility] Hip Left: Hip [employer]-[id number] 05/15/2034 [id number] / / [id number] Chg Head Oxinium Fem 08/06 36 - [id number] Implanted:Qty: 1 on 12/12/2024 by Juan Dickson MD at [facility] Hip Left: Hip [employer]-[id number] 07/27/2034 [id number] / / [id number] Chg Screw Ref Spher Head 40mm - [id number] Implanted:Qty: 1 on 12/12/2024 by Juan Dickson MD at [facility] Screw Left: Hip [employer]-[id number] 06/07/2034 [id number] / / [id number] Chg Screw Redapt Lock 25mm - [id number] Implanted:Qty: 1 on 12/12/2024 by Juan Dickson MD at [facility] Screw Left: Hip [employer]-[id number] 10/26/2033 [id number] / / [id number] Chg Screw Redapt Lock 20mm - [id number] Implanted:Qty: 2 on 12/12/2024 by Juan Dickson MD at [facility] Screw Left: Hip [employer]-[id number] 04/12/2034 [id number] / / [id number] Chg Screw Redapt Lock 20mm - [id number] Implanted:Qty: 1 on 12/12/2024 by Juan Dickson MD at [facility] Screw Left: Hip [employer]-[id number] 03/08/2034 [id number] / / [id number] Chg Liner R3 20 Deg Xlpe Acet - [id number] Implanted:Qty: 1 on 12/12/2024 by Juan Dickson MD at [facility] Screw Left: Hip [employer]-[id number] 03/26/2034 [id number] / / [id number] Polarstem Cementless Tiha 7 - [id number] Implanted:Qty: 1 on 12/12/2024 by Juan Dickson MD at [facility] Stem Left: Hip [employer]-[id number] 02/23/2031 [id number] / / [id number] Geminus Volar Dist Rad Plate Std 4h Lt - [id number] Implanted:Qty: 1 on 12/16/2024 by Carlos Dutta MD at [facility] Left: Wrist [employer]-[id number] / / N/A Screw Peg Threaded Locking 2.9ytf35xi - [id number] Implanted:Qty: 1 on 12/16/2024 by Carlos Dutta MD at [facility] Left: Wrist [employer]-[id number] [id number]-[id number] S / / N/A Screw Peg Threaded Locking 2.3sjr74vp - [id number] Implanted:Qty: 1 on 12/16/2024 by Carlos Dutta MD at [facility] Left: Wrist [employer]-[id number]-56749-D S / / N/A Screw Peg Threaded Locking 2.8sty24ul - [id number] Implanted:Qty: 1 on 12/16/2024 by Carlos Dutta MD at [facility] Left: Wrist [employer]-[id number] CQHD-36231-C S / / N/A Screw Peg Threaded Locking 2.1xes55mo - [id number] Implanted:Qty: 1 on 12/16/2024 by Carlos Dutta MD at [facility] Left: Wrist [employer]-[id number] BRHY-25637-F S / / N/A Screw Peg Threaded Locking 2.4jtt14de - [id number] Implanted:Qty: 2 on 12/16/2024 by Carlos Dutta MD at [facility] Left: Wrist [employer]-[id number] SVRU-02969-W S / / N/A Screw 3.5mm Geminus Ti Cortical Non Lock 14mm - [id number] Implanted:Qty: 1 on 12/16/2024 by Carlos Dutta MD at [facility] Left: Wrist [employer]-[id number]-29220-C S / / N/A Screw 3.5mm Geminus Ti Cortical Non Lock 12mm - [id number] Implanted:Qty: 1 on 12/16/2024 by Carlos Dutta MD at [facility] Left: Wrist [employer]-[id number] ROIA-92991-U S / / N/A Screw 3.5mm Geminus Ti Cortical Lock 12mm - [id number] Implanted:Qty: 1 on 12/16/2024 by Carlos Dutta MD at [facility] Left: Wrist [employer]-[id number] S / / N/A Explanted Type Area Remarketing Manager Device Identifier Shelf Expiration Date Model / Serial / Lot Chg Screw Ref Spher Head 25mm - [id number] Explanted:Qty: 1 on 12/12/2024 by Juan Dickson MD at [facility] Screw Left: Hip [employer]-[id number] 11/27/2033 [id number] / / [id number] Screw Peg Threaded Non Lock 2.5ush43vx - [id number] Explanted:Qty: 1 on 12/16/2024 at [facility] Left: Wrist [employer]-[id number] QCAZ-02057-Z S / / N/A Procedures Procedure Name [...] Fluoroscop y Narrative 02/19/2025 2:34 PM EDT [facility] [address] [place] [address] DXA Bone Densitometry Report: [02/16/2025] BMD test performed using the Hall DXA System (analysis version: 14.10) manufactured by [employer]. REFERRING PROVIDER: Dr. Derick Nuno APRN CLINICAL [...] right wrist if clinically indicated Derick Nuno APRN IM DXA PROCEDURES Final Re sult from Last 3 Months or Most Recently Relevant to Health Maintenance Insurance MEDICARE [facility] Advance Directives * Full Code (Latest Code [...] updated to appropriate status: Yes Care Teams Resource Coordinator Relationship Specialty Start Date End Date Jarocho Huynh MD [address] [facility] [place] [id number] PCP - General 10/27/24
== END 2025-07-24 23:59 | disposition home or self-care (01) ==
LOC: RAD 12:53
PROVIDERS: PCP Family Medicine; Visit Provider Family Medicine
DX: M19.012 Primary osteoarthritis, left shoulder (principal); M75.112 Incomplete rotator cuff tear or rupture of left shoulder, not specified as traumatic; R93.6 Abnormal findings on diagnostic imaging of limbs
CPT/HCPCS: 73221